=== PATIENT | male | born 1995 | race Caucasian/White ===

== ENCOUNTER 2020-08-12 08:47 | Outpatient (REF) | payer OTHER, SELFPAY ==
--- NOTE | ~2020-08-12 | US_ITS ---
EXAMINATION: US ABDOMEN COMPLETE CLINICAL INFORMATION: R10.11 - Right upper quadrant pain. COMPARISON: Ultrasound renal with Doppler 05/10/2016 TECHNIQUE: Real-time imaging of the abdominal viscera. FINDINGS: PANCREAS: The pancreas is normal in size and contour and echogenicity. There is no pancreatic ductal distention or retroperitoneal effusion. ABDOMINAL AORTA: The proximal, mid, and distal segments are normal in caliber. INFERIOR VENA CAVA: Visualized portions are normal. LIVER: Normal. The liver is normal in size. The liver contour is normal. Parenchymal echogenicity is normal. No focal hepatic lesion. There is no intrahepatic biliary duct dilatation seen. GALLBLADDER: Normal. The gallbladder is physiologically distended without evidence of stones, sludge, polyps, wall thickening or pericholecystic fluid. COMMON BILE DUCT: Normal in caliber measuring 0.4 cm in diameter. RIGHT KIDNEY: Normal. No hydronephrosis. No renal calculi or focal parenchymal lesions. The kidney measures 10.5 cm in maximum dimension. LEFT KIDNEY: Normal. No hydronephrosis. No renal calculi or focal parenchymal lesions. The kidney measures 11.3 cm in maximum dimension. SPLEEN: Normal. The spleen measures 10.7 cm in maximum dimension. FREE FLUID: None. US/US abdomen complete IMPRESSION: Normal study.
== END 2020-08-12 08:48 | disposition home or self-care (01) ==
LOC: HO.US 08:47
PROVIDERS: PCP Physician Assistant; Visit Provider Physician Assistant
DX: R10.11 Right upper quadrant pain (principal)
CPT/HCPCS: 76700

== ENCOUNTER 2020-10-29 18:02 | Emergency (ER) | payer OTHER, SELFPAY ==
--- NOTE | ~2020-10-29 | XR_ITS ---
EXAMINATION: XR HAND, LEFT CLINICAL INFORMATION: Thumb pain status post injury COMPARISON: None TECHNIQUE: PA, lateral, and oblique views of the left hand. FINDINGS: The bones and soft tissues are normal aside from some soft tissue swelling at the level of the film. No fracture. Alignment is anatomic. Joint spaces are maintained. No erosions or soft tissue calcifications. XR/XR hand LT min 3V IMPRESSION: Soft tissue swelling without fracture
[2020-10-29 18:49] VITALS: BP 134/80; PULSE 99; RESP 16; TEMP 36.9; O2SAT 98; BMI 34.9
--- NOTE | 2020-10-29 18:59 | ED.EXTPRO ---
HPI - Extremity Problem General Chief complaint: Extremity Injury, Upper Stated complaint: THUMB INJURY Time Seen by Provider: 10/29/20 18:59 Source: patient Mode of arrival: ambulatory Limitations: no limitations History of Present Illness HPI Narrative: Patient jammed left thumb playing volley ball. Patient is right handed. Complaint: extremity pain Onset (ago): hour(s) Pain Consistency: constant Location: left Quality: aching Associated symptoms: other (swelling and ecchymosis) Related Data Previous Rx's Medication Instructions Recorded inafsqdc-gkqalwhsk-qsdypoybl 3.5 4 drp OTIC (EAR) LEFT Q8H 5 Days 07/28/20 mg/mL-10,000 unit/mL-1 % ear #10 ml solution Allergies Allergy/AdvReac Type Severity Reaction Status Date / Time amoxicillin [AMOXICILLIN] Allergy Unknown HIVES Verified 07/28/20 12:07 plum [PLUMS] Allergy Unknown HIVES Verified 07/28/20 12:07 APPLE JUICE Allergy Unknown HIVES Uncoded 03/05/20 16:59 SEAFOOD Allergy Unknown DIFFICULTY Uncoded 03/05/20 16:59 BREATHING Review of Systems Constitutional: Constitutional: Reports no additional constitutional complaints Eyes: Eyes: Reports no additional eye complaints ENT: Denies dizziness Cardiovascular: Cardiovascular: Reports no additional cardiovascular complaints Respiratory: Respiratory: Reports as per HPI Gastrointestinal: Gastrointestinal: Reports no additional gastrointestinal complaints Musculoskeletal: Musculoskeletal: Reports no additional musculoskeletal complaints Integumentary/Breasts: Skin/Breast: Denies rash Neurologic: Reports system reviewed and no additional complaints, except as documented, Denies dizziness and Denies Sensory deficit (Neuro) Psychiatric: Psychiatric: Denies anxiety [facility] Social History Social History Alcohol intake: never Smoking Status: Never smoker Advance Directives: No Advance Directives Information Provided: No Physical Exam Vital Signs: Vital Signs: Last Vital Signs Temp 98.5 F 10/29/20 18:49 Pulse 99 10/29/20 18:49 Resp 16 10/29/20 18:49 BP 134/80 10/29/20 18:49 Pulse Ox 98 10/29/20 18:49 Body Mass Index 34.9 Const: General: healthy appearing Nutritional Appearance: average body habitus Orientation/consciousness: oriented to person and patient oriented x3 Limitations: no limitations HENMT: Head: Yes normal to inspection Ears: external ears normal General nose exam: Normal external nose present Mouth: Normal oral and palatal mucosa present and oropharynx normal Throat: Yes posterior oropharynx normal Eyes: General: appearance normal, both eyes and all related structures Neck: Other: supple Neck: Yes normal visual inspection Chest: Chest palpation & inspection: normal inspection of the chest Resp: Auscultation: clear to auscultation bilaterally Cardio: Jugular venous distension: no JVD Rate: regular rate Rhythm: regular rhythm Heart sounds: S1 normal heart sound present and S2 normal heart sound present GI: Inspection: Yes normal to inspection Palpation (GI): Soft to palpation, nontender and No hepatosplenomegaly present Auscultation: normal bowel sounds : General: Yes no CVA tenderness Back/Spine/Pelvis: Back: no CVA tenderness Skin: General skin exam: no rashes or lesions noted Neuro: General: oriented to person and patient oriented x3 Cranial nerves: Yes CN's II-XII intact bilaterally Motor exam (neuro): 5/5 motor strength present throughout Sensory Exam: No Sensory deficit (Neuro) Extrem: Other: left thumb with swelling to proximal joint Psych: Appearance: grossly normal MDM - Extremity (Nontraumatic) MDM Narrative Medical decision making narrative: patient with thumb sprain will place in splint and dc home Imaging Data thumb left: My impression: no fracture or dislocation Discharge Plan Discharge Clinical Impression: Finger sprain Qualifiers: Encounter type: initial encounter Finger: thumb Sprain of finger site: interphalangeal joint Laterality: left Qualified Code(s): S63.622A - Sprain of interphalangeal joint of left thumb, initial encounter Patient Disposition: Home, Self-Care Instructions: Finger Sprain (ED) Additional Instructions: ice for 20 minutes off and on. Tylenol or motrin for pain Prescriptions: No Action zhikkxfd-qdyxrndmo-AN 3.5-10,000-1 mg/mL-unit/mL-% solution 4 drp otic (ear) left Q8H 5 Days Qty: 10 RF: 0 Referrals: Pranay Back PA-C [Primary Care Provider] - 10 days
== END 2020-10-29 19:36 | disposition home or self-care (01) ==
PROVIDERS: Emergency Provider Emergency Medicine; PCP Physician Assistant
DX: S63.622A Sprain of interphalangeal joint of left thumb, initial encounter (principal); W21.06XA Struck by volleyball, initial encounter; Y93.68 Activity, volleyball (beach) (court); Y92.318 Other athletic court as the place of occurrence of the external cause; Y99.8 Other external cause status
CPT/HCPCS: 29130; 73130; 99283; 99284

== ENCOUNTER 2022-08-22 09:13 | Emergency (ER) | payer SELFPAY ==
[2022-08-22 09:32] VITALS: BP 139/59; PULSE 101; RESP 20; TEMP 37.1; O2SAT 97; BMI 37.8
--- NOTE | 2022-08-22 14:28 | ED.GENADULT ---
HPI - General Adult General Chief complaint: Eye Problems Stated complaint: Eagle palsy Time Seen by Provider: 08/22/22 13:59 Source: patient Mode of arrival: ambulatory Limitations: no limitations History of Present Illness HPI narrative: 27-year-old male presents to ED for symptoms similar to first-time presentation Crow's palsy 3 years ago. Patient states starting last night he started having twitching of his left eye with some tingling left side of face and left eye photophobia with slight headache. patient states presently no headache. Patient states when he had Crow's palsy 3 years ago he had similar initial symptoms and then 2 days later he had facial droop. Presently patient denies any facial droop, slurred speech, trouble drinking/dringkin, loss of vision, or paralysis of extremities. Patient states he tested negative for Lyme and herpes on 1st presentation of Crow's palsy 3 years ago, but at that time he was given steroid with antiviral and antibiotic before results came back. Patient denies any recent head trauma, toothache, or ear pain. Patient denies any eye pain. Patieint presently denies any headache. Patient denies any visual changes Related Data Previous Rx's Medication Instructions Recorded vbarrgyf-vlbjhglrd-jscjvpclv 3.5 4 drp otic (ear) left Q8H 5 days 07/28/20 mg/mL-10,000 unit/mL-1 % ear #10 mL solution naproxen 500 mg tablet 500 mg PO BID PRN pain 7 days #14 08/22/22 tabs prednisone 20 mg tablet 60 mg PO DAILY 7 days #21 tabs 08/22/22 Allergies Allergy/AdvReac Type Severity Reaction Status Date / Time amoxicillin [AMOXICILLIN] Allergy Unknown HIVES Verified 12/24/20 14:45 plum [PLUMS] Allergy Unknown HIVES Verified 12/24/20 14:45 APPLE JUICE Allergy Unknown HIVES Uncoded 03/05/20 16:59 SEAFOOD Allergy Unknown DIFFICULTY Uncoded 03/05/20 16:59 BREATHING Review of Systems Review of Systems: Left eye twitching, left photophobia. resolved headache Yes all other systems are reviewed and are negative PENDING SALE TO [facility] Family History Family History (Updated 12/24/20 @ 14:49 by Pranay Back PA-C) Mother Cancer, uterine Other Alzheimer disease Mental problem Social History Social History Housing: House Alcohol intake: never Patient Tobacco Use Status: Never used Tobacco e-Cigarette/Vaping Use: Never Used Second Hand Smoke Exposure: Yes Substance Use Type: Marijuana Advance Directives: Yes Advance Directives Information Provided: No Advance Directives on File: No service: No Current occupational status: employed Current occupation: works for [employer] Physical Exam ED Vital Signs: Vital Signs - 24 hr 08/22/22 09:32 Temperature 98.8 F Pulse Rate 101 H Respiratory Rate 20 Blood Pressure 139/59 L Pulse Oximetry 97 Oxygen Delivery Method Room Air BMI result Body Mass Index 37.8 Const General: cooperative, healthy appearing, comfortable, no acute distress, well developed, alert, awake and Physically active HENAR Other: Face has perfect symmetry. Negative for any facial droop. Negative for tearing or dorrping of eye. Patient blinks both eyes normal. Negative for twithcing of eyes. Patient has complete range of motion of tongue. Patient's swallowing drink without any trouble. Nose negative for any lesions. ear exam negative for lesions. Head: Yes normal to inspection, Yes No palpable skull fracture present, Yes normocephalic, Yes atraumatic and No abrasion Ears: hearing grossly normal bilaterally, external ears normal, TM's normal bilaterally, EAC's normal, mastoids normal and no periauricular adenopathy Eyes Other: Bilateral eyes: Negative for redness of scleral conjunctiva. Negative for any eye discharge. Negative for eyelid swelling/redness/crusting. Negative for any corneal abrasion/corneal ulcers. Tonometry pressure normal in both eyes. Negative for any nystagmus. Presently negative for any photophobia. Negative for any left eye twitching. Visual acuity 20/25 in both eyes. General: appearance normal, both eyes and all related structures Neck Neck: Yes normal visual inspection, Yes full ROM, Yes no lymphadenopathy, Yes no meningeal signs, Yes trachea midline, Yes supple, No anterior neck swelling and No tender Chest Chest palpation & inspection: normal inspection of the chest and normal palpation of entire chest wall Resp Effort & Inspection: normal respiratory effort and able to speak in complete sentences Auscultation: clear to auscultation bilaterally Cardio Jugular venous distension: no JVD Heart sounds: S1 normal heart sound present and S2 normal heart sound present GI Inspection: Yes normal to inspection and No abdominal wall ecchymosis Palpation (GI): Soft to palpation, not firm, nontender, no guarding and not rigid General: No CVA tenderness and Yes no CVA tenderness Back/Spine/Pelvis Back: no CVA tenderness, No CVA tenderness and No back tenderness Skin General skin exam: no rashes or lesions noted and elasticity normal Neuro Other: NIH score 0. Negative facial droop. Negative slurred speech. Negative pronator drinks. Txdjfb-on-focj and rapid hand movement intact. Negative Romberg. All extremities equal strength. General: no meningeal signs Extrem General: Yes normal to inspection and Yes full ROM Psych Appearance: grossly normal, well kempt and not disheveled Course Course Course Narrative: Patient presents to ED for early onset of Crow's palsy. Reevaluation(s) Reevaluation #1: Specially negative for any neuro deficits. Negative for any facial droop. Once again patient states when she had Crow's palsy the 1st time she had the similar symptoms and then facial droop occurred. Differential could be migraine although presently patient has no photophobia, headache, or twitching of the eye or tingling of left side of face. Will discharge with steroids and naproxen. According to UpToDate only new onset Crow's palsy require antiviral Crow's palsy. No need for imaging ( head CT/Facial CT scan) Time: 14:37 Medical Decision Making Medical Decision Making MDM Narrative: [age] year old male presents to the ED for early onset symptoms of Crow-palsy according to patinet. Patient presently has no facial droop, complete movement of both eyes, negative for any drooling, and has no other neuro deficits. Speech is clear. Patient eating and drinking water. Differential Diagnosis Differential Diagnoses: The differential diagnosis associated with the presentation includes (Migraine exacerbation, early Crow's palsy) Prescription Management I considered prescription management with: Pain Medication (naproxen) and Other (prednisone) Discharge Plan Discharge Clinical Impression: H/O Crow's palsy, Migraine Patient Disposition: Home, Self-Care Instructions: Migraine Headache (ED), Crow Palsy (ED) Additional Instructions: Presently you do not have facial droop and have no other neuro deficit. Symptoms indicate early Crow palsy versus mild migraine exacerbation. You will be discharged with steroids and naproxen. Return to the ED immediately any facial droop, loss of vision, paralysis of extremities, drooling, inability to swallow, tearing of the eye, or any other concerning symptoms. Please follow-up with primary care provider and neurologist. Prescriptions: New naproxen 500 mg tablet 500 mg PO BID PRN (Reason: pain) 7 Days Qty: 14 0RF prednisone 20 mg tablet 60 mg PO DAILY 7 Days Qty: 21 0RF No Action jqjfvuwo-mvylxcioo-WN 3.5-10,000-1 mg/mL-unit/mL-% solution 4 drp otic (ear) left Q8H 5 Days Qty: 10 0RF Stand Alone Forms: Work/School Release Interventions: ED Discharge Assessment Last Done: 08/22/22 14:55 Discharge Date/Time: 08/22/22 14:58 Print Language: Serbian
== END 2022-08-22 14:58 | disposition home or self-care (01) ==
PROVIDERS: Emergency Provider Emergency Medicine; PCP Physician Assistant
DX: G43.909 Migraine, unspecified, not intractable, without status migrainosus (principal)
CPT/HCPCS: 99282; 99283

== ENCOUNTER 2023-09-20 05:50 | Emergency (ER) | payer OTHER, SELFPAY ==
[2023-09-20 06:09] VITALS: BP 144/65; PULSE 97; RESP 16; TEMP 37.1; O2SAT 97; BMI 36.6
[2023-09-20 07:00] LABS: Influenza A PCR NEGATIVE (Negative); Influenza B PCR NEGATIVE (Negative); Resp Syncy Virus RNA Qual PCR NEGATIVE (Negative); SARS COV2 PCR INHOUSE NEGATIVE (Negative)
--- NOTE | 2023-09-20 07:58 | ED_ITS ---
HPI - General Adult General Chief complaint: General Medical Stated complaint: possible stomach bug Time Seen by Provider: 09/20/23 07:58 Source: patient Mode of arrival: ambulatory Limitations: no limitations History of Present Illness HPI narrative: Patient is a 28 year old male with no reported medical history presenting to the emergency department today with nausea, vomiting, sore throat, cough, and congestion. Patient states that he feels generally unwell with nausea, vomiting, sore throat, cough, and congestion. Patient states that he has been around other sick individuals. Patient denies any dizziness, lightheadedness, abdominal pain, fever, chills, blurry vision, double vision, loss of vision, chest pain, difficulty breathing, shortness of breath, back pain, night sweats, pain with urination, increased urinary frequency, increased urinary urgency, blood in his urine or stool, syncope or a near syncopal episode, recent trauma or falls, bowel incontinence, bladder incontinence, bowel retention, bladder retention, or any other complaints at this time. Onset (ago): day(s) Severity: mild Severity scale (1-10): 3 Relieving factors: none Exacerbating factors: none Associated symptoms: cough and nausea/vomiting Treatments prior to arrival: none Related Data Previous Rx's Medication Instructions Recorded hbntlkkq-dsiacnsxa-keuzojkio 3.5 4 drp otic (ear) left Q8H 5 days 07/28/20 mg/mL-10,000 unit/mL-1 % ear #10 mL solution naproxen 500 mg tablet 500 mg PO BID PRN pain 7 days #14 08/22/22 tabs prednisone 20 mg tablet 60 mg (3 x 20 mg) PO DAILY 7 days 08/22/22 #21 tabs ondansetron 4 mg disintegrating 4 mg PO Q8H 3 days #9 tabs 09/20/23 tablet Allergies Allergy/AdvReac Type Severity Reaction Status Date / Time amoxicillin [AMOXICILLIN] Allergy Unknown HIVES Verified 09/20/23 06:12 plum [PLUMS] Allergy Unknown HIVES Verified 09/20/23 06:12 APPLE JUICE Allergy Unknown HIVES Uncoded 09/20/23 06:12 SEAFOOD Allergy Unknown DIFFICULTY Uncoded 09/20/23 06:12 BREATHING Review of Systems Constitutional: Constitutional: Reports no additional constitutional complaints, Denies chills, Denies fever(s) and Denies night sweats Eyes: Eyes: Reports no additional eye complaints, Denies blurry vision, Denies change in vision, Denies diplopia, Denies eye discharge, Denies loss of vision and Denies eye pain ENT: Denies dizziness, Reports nasal congestion and Reports sore throat Cardiovascular: Cardiovascular: Reports no additional cardiovascular complaints, Denies chest pain, Denies lightheadedness, Denies Loss of Consciousness and Denies dyspnea Respiratory: Respiratory: Reports no additional respiratory complaints, Reports cough and Denies dyspnea Gastrointestinal: Gastrointestinal: Reports no additional gastrointestinal complaints, Denies abdominal pain, Denies melena, Denies hematochezia, Denies change in bowel habits, Denies change in stool character, Reports nausea and Reports vomiting Genitourinary: Genitourinary: Reports no additional male genitourinary complaints, Denies hematuria, Denies oliguria, Denies difficulty urinating, Denies dysuria, Denies urinary frequency, Denies urinary hesitancy, Denies urinary incontinence and Denies urinary urgency Musculoskeletal: Musculoskeletal: Reports no additional musculoskeletal com plaints, Denies numbness and Denies tingling Neurologic: Denies dizziness, Denies loss of vision, Denies numbness and Denies tingling Psychiatric: Psychiatric: Reports no additional psychiatric complaints Endocrine: Endocrine: Reports no additional endocrine complaints Hematologic/Lymphatic: Hematologic/Lymphatic: Reports no additional hematologic/lymphatic complaints Allergic/Immunologic: Allergic/Immunologic: Reports no additional allergic/immunologic complaints [facility] Past Medical History Attestation statement: The following information was validated with the patient. Source: old records reviewed and nursing notes reviewed Family History Family History Mother Cancer, uterine Other Alzheimer disease Mental problem Social History Social History Housing: House Alcohol intake: never Patient Tobacco Use Status: Never used Tobacco e-Cigarette/Vaping Use: Never Used Second Hand Smoke Exposure: Yes Substance Use Type: Marijuana Advance Directives: No Advance Directives Information Provided: No service: No Current occupational status: employed Current occupation: works for [employer] Physical Exam ED Vital Signs: Vital Signs - 24 hr 09/20/23 06:09 09/20/23 08:37 09/20/23 08:37 Temperature 98.7 F 98.7 F 98.7 F Pulse Rate 97 97 97 Respiratory Rate 16 20 16 Blood Pressure 144/65 H 144/65 H 144/65 H Pulse Oximetry 97 97 97 Oxygen Delivery Method Room Air Room Air Room Air BMI result Body Mass Index 36.6 Const General: cooperative, no acute distress, alert and awake Nutritional Appearance: well nourished Orientation/consciousness: patient oriented x3 Limitations: no limitations HENMT Head: Yes normal to inspection and Yes atraumatic Ears: hearing grossly normal bilaterally and external ears normal General nose exam: Normal external nose present, no nasal discharge noted and no epistaxis Face and sinus: Yes normal facial exam, No abrasion and No laceration Mouth: Normal oral and palatal mucosa present, no drooling and no muffled voice Eyes General: appearance normal, both eyes and all related structures Periorbital: periorbital findings normal Eyelids: Yes eyelids normal Conjunctivae: conjunctivae normal Pupils: Equal, round and reactive pupils present EOM: EOMs intact bilaterally Neck Neck: Yes normal visual inspection, Yes full ROM and Yes no lymphadenopathy Chest Chest palpation & inspection: normal inspection of the chest Resp Effort & Inspection: normal respiratory effort and able to speak in complete sentences GI Inspection: Yes normal to inspection Neuro General: patient oriented x3 and moves all extremities Cranial nerves: Yes Equal, round and reactive pupils present Cognition (Neuro): normal cognition Motor exam (neuro): 5/5 motor strength present throughout Sensory Exam: Normal double simultaneous stimulation for sensation Coordination: huholj-aq-kcpz test normal Extrem General: Yes normal to inspection, Yes full ROM and Yes capillary refill normal Psych Appearance: grossly normal Mental Status: mental status grossly normal Affect: normal affect Attitude: cooperative Thought process: Normal thought process present Thought content: Normal thought content present Insight: Good insight present (Psych) Medical Decision Making Medical Decision Making MDM Narrative: Patient is a 28 year old male with no reported medical history presenting to the emergency department today with nausea, vomiting, sore throat, cough, and congestion. Patient's physical exam was unremarkable. Patient's COVID-19, influenza, and RSV tests were negative. I explained my physical exam findings as well as all test results to the patient. I answered all questions asked by the patient. I stressed the importance of the patient taking his medication as prescribed. I stressed the importance of the patient following up with his [facility] care provider. I stressed the importance of the patient returning to the emergency department immediately if his symptoms were to worsen or if he were to develop any dizziness, shortness of breath, difficulty breathing, chest pain, blurry vision, loss of vision, nausea, vomiting, abdominal pain, fever, chills, back pain, or any other complaints. Patient verbalized agreement and understanding with this treatment plan and discharge. Differential Diagnosis Differential Diagnoses: The differential diagnosis associated with the prese ntation includes Cough Nausea Vomiting Sore throat Viral illness Gastroenteritis URI COVID-19 Influenza RSV Admission/Observation Consideration of admission/observation: Escalation of care including admission/observation considered Patient would have been admitted to the hospital had his work up had any findings where hospital admission was appropriate and his clinical presentation warranted hospital admission. Lab Data [facility] Lab Attestation statement: I reviewed the patient's lab results. My interpretation of these results are in the [facility] Rationale portion of this note. Labs: Lab Results 09/20/23 Range/Units 06:18 Influenza Type A (PCR) NEGATIVE (Negative) Influenza Type B (PCR) NEGATIVE (Negative) RSV RNA Qual (PCR) NEGATIVE (Negative) SARS-CoV-2 RNA (RT-PCR) NEGATIVE (Negative) Prescription Management I considered prescription management with: Other (patient prescribed an anti- emetic) Discharge Plan Discharge Clinical Impression: Gastroenteritis Patient Disposition: Home, Self-Care Instructions: Gastroenteritis (ED) Additional Instructions: Follow up with your primary care provider. Return to the emergency department immediately if your symptoms worsen or if you develop any dizziness, shortness of breath, difficulty breathing, chest pain, blurry vision, loss of vision, nausea, vomiting, abdominal pain, fever, chills, back pain, or any other complaints. Prescriptions: New ondansetron 4 mg tablet,disintegrating 4 mg PO Q8H 3 Days Qty: 9 0RF No Action naproxen 500 mg tablet 500 mg PO BID PRN (Reason: pain) 7 Days Qty: 14 0RF prednisone 20 mg tablet 60 mg PO DAILY 7 Days Qty: 21 0RF uvjnvwar-helibhasl-RU 3.5-10,000-1 mg/mL-unit/mL-% solution 4 drp otic (ear) left Q8H 5 Days Qty: 10 0RF [place] [facility]] (Call to establish and follow up with a primary care provider. If you already have a primary care provider, please follow up with them.) [facility] [place] [facility] [Provider Group] (Call to establish and follow up with a primary care provider. If you already have a primary care provider, please follow up with them.) [facility] [place] [facility] [Provider Group] (Call to establish and follow up with a primary care provider. If you already have a primary care provider, please follow up with them.) Stand Alone Forms: Work/School Release Interventions: ED Discharge Assessment Last Done: 09/20/23 08:37 Discharge Date/Time: 09/20/23 08:38 Print Language: Georgian
[2023-09-20 08:37] VITALS: BP 144/65; PULSE 97; RESP 16; RESP 20; TEMP 37.1; O2SAT 97
== END 2023-09-20 08:38 | disposition home or self-care (01) ==
PROVIDERS: Emergency Provider Emergency Medicine; PCP Physician Assistant
DX: K52.9 Noninfective gastroenteritis and colitis, unspecified (principal)
CPT/HCPCS: 0241U; 99282; 99283

== ENCOUNTER 2024-06-02 14:21 | Emergency (ER) | payer OTHER, SELFPAY ==
--- NOTE | 2024-06-02 14:25 | ED.HEATRA ---
HPI - Head Injury General Chief complaint: Head Injury Stated complaint: Hit head, blurry vision nausea Time Seen by Provider: 06/02/24 15:05 Source: patient Mode of arrival: ambulatory Limitations: no limitations History of Present Illness ED Provider: Ana Olvera APRN HPI Narrative: 29-year-old male with a history of asthma, PFO, presents to the ER after a head strike which occurred prior to arrival. Patient reports about 1.5 hrs ago he was bending down to put groceries away and forgot he had left the freezer door open. When he stood up he hit the back of his head on the freezer door. No loss of consciousness. Did have a headache and blurry vision which has now resolved. No nausea, vomiting, photophobia, neck pain. No previous history of concussions or head injuries. No AC therapy use. 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 No new changes. Related Data Previous Rx's ?Medication ?Instructions ?Recorded wpyzrpjb-musxkekuh-scannclhr 3.5 4 drp otic (ear) left Q8H 5 days 07/28/20 mg/mL-10,000 unit/mL-1 % ear #10 mL solution naproxen 500 mg tablet 500 mg PO BID PRN pain 7 days #14 08/22/22 tabs prednisone 20 mg tablet 60 mg (3 x 20 mg) PO DAILY 7 days 08/22/22 #21 tabs ondansetron 4 mg disintegrating 4 mg PO Q8H 3 days #9 tabs 09/20/23 tablet Allergies Allergy/AdvReac Type Severity Reaction Status Date / Time amoxicillin [AMOXICILLIN] Allergy Unknown HIVES Verified 06/02/24 14:29 plum [PLUMS] Allergy Unknown HIVES Verified 06/02/24 14:29 APPLE JUICE Allergy Unknown HIVES Uncoded 09/20/23 06:12 SEAFOOD Allergy Unknown DIFFICULTY Uncoded 09/20/23 06:12 BREATHING Review of Systems Review of Systems: Yes all other systems are reviewed and are negative Constitutional: Constitutional: Reports no additional constitutional complaints, Denies body ache(s), Denies chills, Denies fever(s), Reports headache(s) and Denies weakness Eyes: Eyes: Reports no additional eye complaints, Reports blurry vision and Denies change in vision ENT: Reports system reviewed and no additional complaints, except as documented, Denies dizziness, Reports headache(s), Denies nasal congestion, Denies nasal discharge and Denies neck pain Cardiovascular: Cardiovascular: Reports no additional cardiovascular complaints, Denies chest pain, Denies leg edema and Denies dyspnea Respiratory: Respiratory: Reports no additional respiratory complaints, Denies cough and Denies dyspnea Gastrointestinal: Gastrointestinal: Reports no additional gastrointestinal complaints, Denies abdominal pain, Denies diarrhea, Denies nausea and Denies vomiting Genitourinary: Genitourinary: Denies urinary incontinence Musculoskeletal: Musculoskeletal: Reports no additional musculoskeletal complaints, Denies back pain, Denies arthralgias, Denies joint swelling, Denies neck pain, Denies numbness and Denies tingling Integumentary/Breasts: Skin/Breast: Reports system reviewed and no additional complaints, except as docu and Denies rash Neurologic: Reports system reviewed and no additional complaints, except as documented, Denies Abnormal speech present, Denies dizziness, Reports headache(s), Denies numbness, Denies tingling and Denies weakness PMF Past Medical History Attestation statement: The following information was validated with the patient. Source: old records reviewed and nursing notes reviewed Family History Family History Mother Cancer, uterine Other Alzheimer disease Mental problem Social History Social History Housing: House Alcohol intake: never Patient Tobacco Use Status: Never used Tobacco e-Cigarette/Vaping Use: Never Used Second Hand Smoke Exposure: Yes Substance Use Type: Marijuana Advance Directives: No Advance Directives Information Provided: No Do you have a plan to hurt others: No Plan service: No Current occupational status: employed Current occupation: works for [employer] Physical Exam Vital Signs: Vital Signs: Last Vital Signs Temp 98.3 F 06/02/24 15:47 Pulse 83 06/02/24 15:47 Resp 18 06/02/24 15:47 BP 151/85 H 06/02/24 15:47 Pulse Ox 97 06/02/24 15:47 O2 Del Method Room Air 06/02/24 15:47 BMI result Body Mass Index 39.9 Const: General: cooperative, healthy appearing, comfortable and no acute distress Orientation/consciousness: patient oriented x3 Limitations: no limitations HEENT: Other: NO hemotmpanum Head: Yes normal to inspection, No Martin's sign and No raccoon eyes Ears: hearing grossly normal bilaterally and TM's normal bilaterally General nose exam: Normal external nose present Face and sinus: Yes normal facial exam Mouth: Normal oral and palatal mucosa present Throat: Yes posterior oropharynx normal, Yes tonsils normal and Yes uvula midline Eyes: General: appearance normal, both eyes and all related structures Pupils: Equal, round and reactive pupils present Neck: Other: no cervical midline tenderness/step offs or deformities Neck: Yes normal visual inspection, Yes full ROM, Yes no lymphadenopathy and Yes no meningeal signs Chest: Chest palpation & inspection: normal inspection of the chest Resp: Effort & Inspection: normal respiratory effort Auscultation: clear to auscultation bilaterally Cardio: Rate: regular rate Rhythm: regular rhythm Peripheral pulses: Peripheral pulses 2+ throughout GI: Inspection: Yes normal to inspection Palpation (GI): Soft to palpation and nontender Auscultation: normal bowel sounds Back/Spine/Pelvis: Thoracic/Lumbar Spine: thoracic and lumbar spine normal to inspection Skin: General skin exam: no rashes or lesions noted Neuro: Other: blind right eye at baseline Documentation below for left eye only General: patient oriented x3, moves all extremities, no meningeal signs, no focal motor deficits and normal sensation to monofilament Cranial nerves: Yes CN's II-XII intact bilaterally, Yes Equal, round and reactive pupils present, Yes Bilaterally intact EOM present, Yes Nystagmus not present, Yes Normal facial strength present and Yes Midline tongue present Cognition (Neuro): normal cognition Speech: No Abnormal speech present Gait exam (Neuro): Normal gait present Motor exam (neuro): 5/5 motor strength present throughout Sensory Exam: Normal double simultaneous stimulation for sensation Extrem: General: Yes normal to inspection Course Course Course Narrative: patient is a 29-year-old who presents emergency department for evaluation after head injury. He reports that he was putting away groceries forgot that the freezer door was open when he stood up he struck his head onto the freezer door. 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 Denies LOC. He is reporting persistent nausea as well as a headache, did not take any OTC analgesics. Has no focal neurological deficits. Ambulatory with a steady gait. No scalp lacerations. No use of anticoagulants or known coagulation disorders. Plan: Zofran, Tylenol, visual acuity, [place] head CT rule without indication for radiographic imaging at this time Medications Administered Discontinued Medications Generic Name Dose Route Start Last Admin Trade Name Sergey PRN Reason Stop Dose Admin Acetaminophen 975 mg 06/02/24 14:31 06/02/24 15:03 Acetaminophen 325 Mg Tablet PO 06/02/24 14:32 975 mg ONCE ONE Administration Ondansetron HCl 4 mg 06/02/24 14:31 06/02/24 15:02 Ondansetron Odt 4 Mg Tab.Rapdis TRANSLINGU 06/02/24 14:32 4 mg ONCE ONE Administration Medical Decision Making Medical Decision Making MDM Narrative: 29-year-old male with a history of asthma, PFO, presents to the ER after a head strike which occurred prior to arrival. Patient reports about 1.5 hrs ago he was bending down to put groceries away and forgot he had left the freezer door open. When he stood up he hit the back of his head on the freezer door. No loss of consciousness. Did have a headache and blurry vision which has now resolved. No nausea, vomiting, photophobia, neck pain. No previous history of concussions or head injuries. No AC therapy use. 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 No new changes. Normal neuro exam with no focal deficits. Reviewed CT [place] head ct rule. Imaging not warranted. Reviewed this with the patient and shared decision making for no head CT. Reviewed head injury care at home. Reviewed worrisome signs/symptoms with patient and when to seek additional care. Comfortable with plan for discharge home. Differential Diagnosis Differential Diagnoses: The differential diagnosis associated with the presentation includes Concussion Low suspicion for skull fracture, ICH Admission/Observation Consideration of admission/observation: Escalation of care including admission/observation considered Low suspicion for skull fracture, ICH requiring imaging and or transfer to tertiary care center for neurosurgery evaluation Independent Historian Clinical information obtained from an independent historian. History obtained from or confirmed by: Friend Tests considered The following testing was considered but not selected: Low suspicion for skull fracture, ICH requiring imaging Discharge Plan Discharge Clinical Impression: Concussion without loss of consciousness Patient Disposition: Home, Self-Care Instructions: Concussion (ED) Additional Instructions: Get plenty of brain rest Limit screen time Take Motrin or Tylenol for any pain as needed Return for severe headache, vomiting, behavior changes Prescriptions: No Action naproxen 500 mg tablet 500 mg PO BID PRN (Reason: pain) 7 Days Qty: 14 0RF prednisone 20 mg tablet 60 mg PO DAILY 7 Days Qty: 21 0RF ondansetron 4 mg tablet,disintegrating 4 mg PO Q8H 3 Days Qty: 9 0RF xzmkllzk-wluaxmxlx-SH 3.5-10,000-1 mg/mL-unit/mL-% solution 4 drp otic (ear) left Q8H 5 Days Qty: 10 0RF Referrals: Pranay Back PA-C [Primary Care Provider] - 1 week Stand Alone Forms: Work/School Release Interventions: ED Discharge Assessment Last Done: 06/02/24 15:47 Discharge Date/Time: 06/02/24 15:57 Print Language: Bengali
[2024-06-02 14:26] VITALS: BP 151/85; PULSE 83; RESP 18; TEMP 36.8; O2SAT 97; BMI 39.9
[2024-06-02] MEDS: Ondansetron ODT 4 MG TAB.RAPDIS TRANSLINGU (15:02)
[2024-06-02] MEDS: Acetaminophen 325 MG TABLET 975 MG PO (15:03)
--- NOTE | 2024-06-02 15:40 | MHC.EDTECH ---
at this time this tech performed a visual acuity test on the pt, upon completing the test he stated that he could not see the visual acuity sign with his Right eye when covering the left. However he was able to perform the test w/ his left eye uncovered
[2024-06-02 15:47] VITALS: BP 151/85; PULSE 83; RESP 18; TEMP 36.8; O2SAT 97
== END 2024-06-02 15:57 | disposition home or self-care (01) ==
PROVIDERS: Emergency Provider Emergency Medicine; PCP Physician Assistant
DX: S06.0X0A Concussion without loss of consciousness, initial encounter (principal); X58.XXXA Exposure to other specified factors, initial encounter; Y93.9 Activity, unspecified; Y92.9 Unspecified place or not applicable; Y99.8 Other external cause status
CPT/HCPCS: 99283

== ENCOUNTER 2024-07-29 07:46 | Emergency (ER) | payer OTHER, SELFPAY ==
[2024-07-29 07:49] VITALS: BP 127/82; PULSE 102; RESP 20; TEMP 36.4; O2SAT 100; BMI 41.4
--- OUTSIDE RECORDS SUMMARY | 2024-07-29 09:52 | XMS_ITS | Encounter Summary ---
Author Organization [facility] Address [address] [place] [phone] Phone Care Team Providers Care Blueprint Clerk Name Role Phone Danielle Smith APPLIED RESEARCHER Primary Care Provider Maritza oliveira Encounter Details Date Type Department Care Team (Late st Contact Info) Description 10/02/2013 Documentation [facility] [place] Family Medicine [address] [place] [address] Family Medicine, Physician [facility] [place] [address] Social History Tobacco Use Types Packs/Day Years Used Date Smoking Tobacco: Never Assessed Comments Unknown Sex and Gender Information Value Date Recorded Sex Assigned at Not on file Legal Sex Female 5:20 PM EDT Gender Identity Not on file Sexual Orientation Not on file documented as of this encounter Plan of Treatment Not on file documented as of this encounter Visit Diagnoses Not on filedocumented in this encounter Care Teams Blueprint Clerk Relationship Specialty Start Date End Date Danielle Smith NP PCP - General 01/27/17 08/04/22 documented as of this encounter
--- OUTSIDE RECORDS SUMMARY | 2024-07-29 09:52 | XMS_ITS | Encounter Summary ---
Author Organization [facility] Address [address] [place] [phone] Phone Care Team Providers Care Entry Level Management Name Role Phone Danielle Smith STRATEGIC COMMUNICATIONS SPECIALIST Primary Care Provider Maritza oliveira Encounter Details Date Type Department Care Team (Late st Contact Info) Description 12/25/2014 Documentation [facility] [place] Family Medicine [address] [place] [address] Family Medicine, Physician [facility] [place] [address] Social History Tobacco Use Types Packs/Day Years [...] on filedocumented in this encounter Care Teams Entry Level Management Relationship Specialty Start Date End Date Danielle Smith NP PCP - General 01/27/17 08/04/22 documented as of this encounter
--- OUTSIDE RECORDS SUMMARY | 2024-07-29 09:52 | XMS_ITS | Encounter Summary ---
Author Organization [facility] Address [address] [place] [phone] Phone Care Team Providers Care Avionics Systems Engineer Name Role Phone Danielle Smith NP Primary Care Provider Maritza oliveira Encounter Details Date Type Department Care Team (Late st Contact Info) Description 07/11/2016 Documentation [facility] [place] Family Medicine [facility] [place] [address] Family Medicine, Physician [facility] [place] [address] Social History Tobacco Use Types Packs/Day Years Used Date Smoking Tobacco: Never Comments:Never smoker Comments Unknown Sex and Gender Information Value Date Recorded Sex Assigned at Not on file Legal Sex Female 5:20 PM EDT Gender Identity Not on file Sexual Orientation Not on file documented as of this encounter Plan of Treatment Not on file documented as of this encounter Visit Diagnoses Not on filedocumented in this encounter Care Teams Avionics Systems Engineer Relationship Specialty Start Date End Date Danielle Smith NP PCP - General 01/27/17 08/04/22 documented as of this encounter
--- OUTSIDE RECORDS SUMMARY | 2024-07-29 09:52 | XMS_ITS | Encounter Summary ---
Author Organization [facility] Address [address] [place] [address] Phone Care Team Providers Care Mill Worker Name Role Phone Danielle Smith NP Primary Care Provider Maritza oliveira Encounter Details Date Type Department Care Team (Late st Contact Info) Description 07/11/2016 Documentation [facility] [place] [facility] [facility] to [facility] [place] [address] Family Medicine, Physician Pending sale to [place] [address] Social History Tobacco Use Types Packs/Day Years [...] on filedocumented in this encounter Care Teams Mill Worker Relationship Specialty Start Date End Date Danielle Smith NP PCP - General 01/27/17 08/04/22 documented as of this encounter
--- OUTSIDE RECORDS SUMMARY | 2024-07-29 09:52 | XMS_ITS | Clinical Summary ---
Author Organization [facility] Address [address] [place] [phone] Phone Care Team Providers Care Data Warehouse Manager Name Role Phone Unavailable Primary Care Provider Unavailabl e Allergies Active Allergy Reactions Criticality Noted Date Comments Amoxicillin Rash Low Apple Juice Food 04/10/2017 plum Medications leuprolide (LUPRON DEPOT, 3-MONTH,) 22.5 MG injection Inject into the muscle. 04/21/2015 Active testosterone 50 MG/5GM (1%) gel TESTOSTERON E; 50 MG/5 GRAM (1 %); 02/15/2016; Active 02/15/2016 Active valACYclovir 1 G tablet TK 1 T PO Q 8 H X 7 DAYS 0 09/01/2017 Active predniSONE 20 MG tablet TK 3 TS PO QD FOR 5 DAYS 0 09/01/2017 Active testosterone cypionate 200 MG/ML injection 5 06/02/2017 Act amberly Active Problems Problem Noted Date Diagnosed Date Essential hypertension 12/26/2017 Overview (12/26/2017): Seen by cardiology and started on lisinopril with close follow up planned with them. 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 Immunizations Immunization Administration Dates Next Due DTaP 5 01/07/2003, 9,1997,08/25,1997 HPV, Quadrivalent 08/07/2009,04/01/2009,01/27/20 09 Hep A, ped/adol 12/09/2015,01/27/2015 Hep B, ped/adol 1997,1997,1997 Hib (PRP-T) 09/02/1998, 8,1997,07/14 IPV 01/07/2003 Influenza Split 05/16/2012,05/02/2011 Influenza, injectable, quadrivalent 04/21/2015 Influenza, injectable, quadr ivalent, preservative free 04/10/2017,02/15/2016,08/07/2013 MMR 10/22/2001,05/13/1998 Meningococcal Conj (Menactra) MCV4P 01/27/2015,0 01/26/2009 OPV 1997,1997,1997 Tdap 01/26/2009 Varicella 01/22/2008,05/26/1999 Family History Medical History Relation Name Comments Alcoholism Father's Brother Alcoholism Maternal Grandmother Anxiety disorder Maternal Grandmother Asthma Maternal Grandmother Cancer (Childhood Onset) Maternal Grandmother Depression Maternal Grandmother Hearing loss Maternal Grandmother Heart disease (Premature) Maternal Grandmother Hypertension Maternal Grandmother Obesity Maternal Grandmother Allergic rhinitis Mother Asthma Mother Breast cancer Mother Cancer (Childhood Onset) Mother Depression Mother Hypertension Mother Learning disabilities Mother Obesity Mother Substance abuse Mother Diabetes Mother's Brother Anxiety disorder Mother's Sister Depression Mother's Sister Obesity Mother's Sister Cancer (Childhood Onset) Paternal Grandfather ADD / ADHD Sister Relation Name Status Comments Father Alive Father: Alive a nd well Father's Brother Maternal Grandmother Mother Alive Mother: Fragile X Carrier Mother's Brother Mother's Sister Other 1 Alive Aunt: Alive and well Other 2 Family history of Strabismus, Family history of Obesity, Family history of Diabetes mellitus, Family history of Asthma Paternal Grandfather Sister Social History Tobacco Use Types Packs/Day Years Used Date Smoking Tobacco: Never Comments:Never smoker Comments Unknown Sex and Gender Information Value Date Recorded Sex Assigned at Not on file Legal Sex Female 5:20 PM EDT Gender Identity Not on file Sexual Orientation Not on file Last Filed Vital Signs Vital Sign Reading Time Taken Comments Blood Pressure 116/78 09/11/2017 10:54 AM EDT Pulse 81 09/11/2017 10:54 AM EDT Temperature 36.8 ??C (98.2 ??F) 09/11/2017 10:54 AM E DT Respiratory Rate - - Oxygen Saturation - - Inhaled Oxygen Concentration - - Weight 83.1 kg (183 lb 2 oz) 09/11/2017 10:54 AM EDT Height 166.4 cm (5' 5.5 ) 04/10/2017 1:53 PM EDT Body Mass Index 30.01 04/10/2017 1:53 PM EDT Plan of Treatment Health Maintenance Due Date Last Done Comments DTaP,Tdap,and Td Vaccines (7 - Td or Tdap) 01/26/2019 01/26/2009, 01/07/2003, 10/07/1998, Additional history exists Influenza Vaccines (#1) 2024 04/10/20 17, 02/15/2016, 04/21/2015, Additional history exists COVID-19 Vaccine ( season) 2024 Hepatitis B Vaccines Completed 1997, 1997, 1997 HIB Vaccines Completed 09/02/1998, 09/18, 1997, Additional history exists MMR Vaccines Completed 10/22/2001, 05/13/1998 IPV Vaccines Completed 01/07/2003, 09/18, 1997, Additional history exists Varicella Vaccines Completed 01/22/2008, 05/26/1999 HPV Vaccines Completed 08/07/2009, 03/19, 01/26/2009 Meningococcal Vaccine Completed 01/27/2015, 009 Hepatitis A Vaccines Completed 12/09/2015, 01/28/20 15 Men B Vaccine Aged Out No longer elig ible based on patient's age to complete this topic Pneumococcal Vaccine Aged Out No long er eligible based on patient's age to complete this topic Procedures * Due to [place] [employer] law, this organization might not be sharing sensitive test results. Procedure Name Priority Date/Time Associated Diagnosis Comments CHLAMYDIA AND GONORRHEA, AMPLIFIED Routine 02/16/2016 2:09 PM EDT from Last 3 Months or Most Recently Relevant to Health Maintenance Results * Due to [place] [employer] law, this organization might not be sharing sensitive test results. * Chlamydia and Gonorrhoea, Amplified (02/16/2016 2:09 PM EDT) URINE GC AMP PROBE NEGATIVE [facility] Comment: No Neisseria Gonorrhoeae RNA detected in this patient's sample (REFERENCE RANGE/NORMAL VALUE: NOT DETECTED) NOTE: This test uses manager publishing-mediated amplification method to detect rRNA from C.Trachomatis and N.Gonorrhoeae. A negative result does not preclude infection. In the case of a negative urine result, testing of an endocervical(female) or urethral(male) specimen is recommended if there is high clinical suspicion of infection. The performance characteristics of this test have not been evaluated in children. The Aptima Combo2 assay is not intended for the evaluation of suspected sexual abuse or for other medico-legal indications. The ordering provider should assess if the patient had consensual sex without risk of sexual abuse. Consult the [facility] if needed. Contact phone number . Therapeutic failure or success cannot be determined with the Aptima Combo2 assay since nucleic acid may persist following appropriate antimicrobial therapy. The Centers for Disease Control and Prevention (CDC) recommends confirmatory retesting using culture or a different nucleic acid amplification test when positive results occur, if indicated. Testing performed or reported by [facility], a Service of [facility], [address] [place] [address] CLIA ??[id number] Werner Gilbert MD, PhD, Grain Roaster URINE CHLAMYDIA AMP PROBE NEGATIVE [facility] Comment: No Chlamydia Trachomatis RNA detected in this patient's sample (REFERENCE RANGE/NORMAL VALUE: NOT DETECTED) 02/16/2016 2:09 PM EDT Narrative [facility] - 02/16/2016 2:09 PM EDT URINE CHLAMYDIA GC AMP PROBE us Danielle Smith NP LAB MICROBIOLOGY - GENERAL OR DERABLES Final Result [facility] [address] [place] [address], from Last 3 Months or Most Recently Relevant to Health Maintenance Insurance [place]IZ BRYANT [id number] [facility] [employer] NON PCC
--- OUTSIDE RECORDS SUMMARY | 2024-07-29 09:52 | XMS_ITS | Encounter Summary ---
Author Organization [facility] Address [address] [place] [address] Phone Care Team Providers Care Chip Bin Conveyor Tender Name Role Phone Danielle Smith NP Primary Care Provider Maritza oliveira Encounter Details Date Type Department Care Team (Late st Contact Info) Description 04/04/2016 Documentation [facility] [place] [address] [place] [address] Family Medicine, Physician [facility] [place] [address] Social History Tobacco Use Types Packs/Day Years [...] on filedocumented in this encounter Care Teams Chip Bin Conveyor Tender Relationship Specialty Start Date End Date Danielle Smith NP PCP - General 01/27/17 08/04/22 documented as of this encounter
--- OUTSIDE RECORDS SUMMARY | 2024-07-29 09:52 | XMS_ITS | Encounter Summary ---
Author Organization [facility] Address [address] [place] [address] Phone Care Team Providers Care Warehouse Selector Name Role Phone Danielle Smith NP Primary Care Provider Maritza oliveira Encounter Details Date Type Department Care Team (Late st Contact Info) Description 09/26/2016 Documentation [facility] [place] [facility] [place] [address] Family Medicine, Physician [facility] [place] [address] Social History Tobacco Use Types Packs/Day Years [...] on filedocumented in this encounter Care Teams Warehouse Selector Relationship Specialty Start Date End Date Danielle Smith NP PCP - General 01/27/17 08/04/22 documented as of this encounter
--- OUTSIDE RECORDS SUMMARY | 2024-07-29 09:52 | XMS_ITS | Encounter Summary ---
Author Organization [facility] Address [address] [place] [phone] Phone Care Team Providers Care Computer Analyst Supervisor Name Role Phone Danielle Smith NP Primary Care Provider Maritza oliveira Encounter Details Date Type Department Care Team (Late st Contact Info) Description 08/10/2016 Documentation [facility] [place] [facility] [place] [address] Family Medicine, Physician [facility] [place] [address] Social History Tobacco Use Types Packs/Day Years [...] on filedocumented in this encounter Care Teams Computer Analyst Supervisor Relationship Specialty Start Date End Date Danielle Smith NP PCP - General 01/27/17 08/04/22 documented as of this encounter
--- OUTSIDE RECORDS SUMMARY | 2024-07-29 09:52 | XMS_ITS | Encounter Summary ---
Author Organization [facility] Address [address] [place] [address] Phone Care Team Providers Care Supervisor Beehive Kiln Name Role Phone Danielle Smith FEATHER BALER Primary Care Provider Maritza oliveira Encounter Details Date Type Department Care Team (Late st Contact Info) Description 12/16/2013 Documentation [facility] [place] [address] [place] [address] Family Medicine, Physician [facility] [place] [address] Social History Tobacco Use Types Packs/Day Years [...] on filedocumented in this encounter Care Teams Supervisor Beehive Kiln Relationship Specialty Start Date End Date Danielle Smith NP PCP - General 01/27/17 08/04/22 documented as of this encounter
--- OUTSIDE RECORDS SUMMARY | 2024-07-29 09:52 | XMS_ITS | Encounter Summary ---
Author Organization [facility] Address [address] [place] [address] Phone Care Team Providers Care Cement Loader Name Role Phone Danielle Smith VIDEO EDITING INTERNSHIP Primary Care Provider Maritza oliveira Encounter Details Date Type Department Care Team (Late st Contact Info) Description 10/20/2015 Documentation [facility] [place] [address] [place] [address] Family Medicine, Physician [place] [address] Social History Tobacco Use Types Packs/Day Years [...] on filedocumented in this encounter Care Teams Cement Loader Relationship Specialty Start Date End Date Danielle Smith NP PCP - General 01/27/17 08/04/22 documented as of this encounter
--- OUTSIDE RECORDS SUMMARY | 2024-07-29 09:52 | XMS_ITS | Encounter Summary ---
Author Organization [facility] Address [address] [place] [address] Phone Care Team Providers Care Director Patient Accounting Name Role Phone Danielle Smith BARREL LATHE OPERATOR INSIDE Primary Care Provider Maritza oliveira Encounter Details Date Type Department Care Team (Late st Contact Info) Description 07/07/2015 Documentation [facility] [place] Family Medicine [address] [place] [address] Family Medicine, Physician [place] [address] Social History Tobacco Use Types Packs/Day Years [...] on filedocumented in this encounter Care Teams Director Patient Accounting Relationship Specialty Start Date End Date Danielle Smith NP PCP - General 01/27/17 08/04/22 documented as of this encounter
--- OUTSIDE RECORDS SUMMARY | 2024-07-29 09:52 | XMS_ITS | Encounter Summary ---
Author Organization [facility] Address [address] [place] [address] Phone Care Team Providers Care Server Engineer Name Role Phone Danielle Smith NP Primary Care Provider Maritza oliveira Encounter Details Date Type Department Care Team (Late st Contact Info) Description 07/11/2016 Documentation [facility] [place] Medicine [facility] [place] [address] Family Medicine, Physician [facility] [place] [address] Social History Tobacco Use Types Packs/Day Years [...] on filedocumented in this encounter Care Teams Server Engineer Relationship Specialty Start Date End Date Dainelle Smith NP PCP - General 01/27/17 08/04/22 documented as of this encounter
--- OUTSIDE RECORDS SUMMARY | 2024-07-29 09:52 | XMS_ITS | Encounter Summary ---
Author Organization [facility] Address [address] [place] [address] Phone Care Team Providers Care Vendor Analyst Name Role Phone Danielle Smith NP Primary Care Provider Maritza oliveira Encounter Details Date Type Department Care Team (Late st Contact Info) Description 02/02/2017 Conversion Encounter [facility] [address] [address] Social History Tobacco Use Types Packs/Day Years [...] on filedocumented in this encounter Care Teams Vendor Analyst Relationship Specialty Start Date End Date aDnielle Smith NP PCP - General 01/27/17 08/04/22 documented as of this encounter
--- OUTSIDE RECORDS SUMMARY | 2024-07-29 09:52 | XMS_ITS | Encounter Summary ---
Author Organization [facility] Address [address] [place] [address] Phone Care Team Providers Care Director Of Preclinical Research Name Role Phone Danielle Smith NP Primary Care Provider Maritza oliveira Encounter Details Date Type Department Care Team (Late st Contact Info) Description 03/23/2016 [place]ation [facility] [place] [address] [place] [address] Family Medicine, Physician [facility] [place] [address] Social History Tobacco Use Types Packs/Day Years [...] filedocumented in this encounter Care Teams Director Of Preclinical Research Relationship Specialty Start Date End Date Danielle Smith NP PCP - General 01/27/17 08/04/22 documented as of this encounter
--- OUTSIDE RECORDS SUMMARY | 2024-07-29 09:52 | XMS_ITS | Encounter Summary ---
Author Organization [facility] Address [address] [place] [address] Phone Care Team Providers Care Slide Machine Tender Name Role Phone Danielle Smith PLATING TANK OPERATOR APPRENTICE Primary Care Provider Maritza oliveira Encounter Details Date Type Department Care Team (Late st Contact Info) Description 08/21/2013 Documentation [facility] [place] [address] [place] [address] Family Medicine, Physician [facility] [place] [address] Social History Tobacco Use Types Packs/Day Years [...] on filedocumented in this encounter Care Teams Slide Machine Tender Relationship Specialty Start Date End Date Danielle Smith NP PCP - General 01/27/17 08/04/22 documented as of this encounter
--- OUTSIDE RECORDS SUMMARY | 2024-07-29 09:52 | XMS_ITS | Encounter Summary ---
Author Organization [facility] Address [address] [place] [address] Phone Care Team Providers Care Product Development Technician Name Role Phone Danielle Smith NP Primary Care Provider Maritza oliveira Encounter Details Date Type Department Care Team (Late st Contact Info) Description 09/19/2016 Documentation [facility] [place] [facility] [place] [address] Family Medicine, Physician [facility] [place] [address] Social History Tobacco Use Types Packs/Day Years [...] on filedocumented in this encounter Care Teams Product Development Technician Relationship Specialty Start Date End Date Danielle Smith NP PCP - General 01/27/17 08/04/22 documented as of this encounter
--- OUTSIDE RECORDS SUMMARY | 2024-07-29 09:52 | XMS_ITS | Encounter Summary ---
Author Organization [facility] Address [address] [place] [address] Phone Care Team Providers Care Field Sales Manager Name Role Phone Danielle Smith AUTO SPECIALTY SERVICES MANAGER Primary Care Provider Maritza oliveira Encounter Details Date Type Department Care Team (Late st Contact Info) Description 07/14/2014 Documentation [facility] [place] [address] [place] [address] Family Medicine, Physician [facility] [place] [address] Social History Tobacco Use Types Packs/Day Years [...] on filedocumented in this encounter Care Teams Field Sales Manager Relationship Specialty Start Date End Date Danielle Smith NP PCP - General 01/27/17 08/04/22 documented as of this encounter
== END 2024-07-29 09:49 | disposition left against medical advice (07) ==
PROVIDERS: Emergency Provider Emergency Medicine; PCP Physician Assistant
DX: R11.10 Vomiting, unspecified (principal); Z53.21 Procedure and treatment not carried out due to patient leaving prior to being seen by health care provider
CPT/HCPCS: 99281

== ENCOUNTER 2024-08-05 08:18 | Emergency (ER) | payer OTHER, SELFPAY ==
--- NOTE | ~2024-08-05 | XR_ITS ---
CLINICAL HISTORY: fall pain 3 view right ankle Comparison: None Findings: No fracture or malalignment. No significant osteoarthritis. Tiny posterior calcaneal enthesophyte. A tibiotalar joint effusion is present. IMPRESSION: Tibiotalar joint effusion without evidence of fracture. This document has been electronically signed by: Adria Mike DO on 08/05/2024 09:15:01
[2024-08-05 08:31] VITALS: BP 138/73; PULSE 88; RESP 16; TEMP 36.5; O2SAT 97; BMI 40.8
--- NOTE | 2024-08-05 08:40 | ED.GENADULT ---
HPI - General Adult General Chief complaint: Extremity Injury, Lower Stated complaint: R Ankle Pain Injury 08/05/24 Time Seen by Provider: 08/05/24 08:40 Source: patient, RN notes reviewed and old records reviewed Mode of arrival: ambulatory Limitations: no limitations History of Present Illness ED Provider: Juany HPI narrative: Patient is a 29-year-old male presenting with complaint of right ankle pain and swelling since yesterday. Slipped on ice while shoveling, unsure of exact mechanism. Pain and swelling to lateral ankle. Denies foot pain. Denies numbness or tingling. Denies head strike or loss of consciousness, denies head, neck or back pain. MD complaint: ankle pain Onset (ago): hour(s) Related Data Previous Rx's ?Medication ?Instructions ?Recorded qilzvfbm-wtjezztvt-liojsfekc 3.5 4 drp otic (ear) left Q8H 5 days 07/28/20 mg/mL-10,000 unit/mL-1 % ear #10 mL solution naproxen 500 mg tablet 500 mg PO BID PRN pain 7 days #14 08/22/22 tabs prednisone 20 mg tablet 60 mg (3 x 20 mg) PO DAILY 7 days 08/22/22 #21 tabs ondansetron 4 mg disintegrating 4 mg PO Q8H 3 days #9 tabs 09/20/23 tablet Allergies Allergy/AdvReac Type Severity Reaction Status Date / Time amoxicillin [AMOXICILLIN] Allergy Unknown HIVES Verified 08/05/24 08:33 plum [PLUMS] Allergy Unknown HIVES Verified 08/05/24 08:33 APPLE JUICE Allergy Unknown HIVES Uncoded 07/29/24 07:54 SEAFOOD Allergy Unknown DIFFICULTY Uncoded 07/29/24 07:54 BREATHING Review of Systems Review of Systems: As per HPI Yes all other systems are reviewed and are negative Constitutional: Constitutional: Reports as per HPI [facility] Family History Family History Mother Cancer, uterine Other Alzheimer disease Mental problem Social History Social History Housing: House Alcohol intake: never Patient Tobacco Use Status: Never used Tobacco Smoked in Last 30 Days: No e-Cigarette/Vaping Use: Never Used Second Hand Smoke Exposure: Yes Use of substances other than those prescribed or required for medical reasons: Yes Substance Use Type: Marijuana Advance Directives: No Advance Directives Information Provided: Yes service: No Current occupational status: employed Current occupation: works for [employer] Physical Exam ED Vital Signs: Vital Signs - 24 hr 08/05/24 08:31 Temperature 97.7 F Pulse Rate 88 Respiratory Rate 16 Blood Pressure 138/73 Pulse Oximetry 97 Oxygen Delivery Method Room Air BMI result Body Mass Index 40.8 Vital signs have been reviewed and appear to be correct. Blood pressure normal. Heart rate normal. Respiratory rate normal. Temperature normal. Oxygen saturation normal. Const General: cooperative, healthy appearing and no acute distress Orientation/consciousness: oriented to person, oriented to place, oriented to time and patient oriented x3 Limitations: no limitations HENMT Head: Yes normocephalic and Yes atraumatic Ears: external ears normal General nose exam: Normal external nose present Face and sinus: Yes face symmetric Mouth: oropharynx normal and moist mucous membranes Throat: Yes uvula midline Eyes Pupils: Equal, round and reactive pupils present Neck Neck: Yes normal visual inspection and Yes supple Resp Effort & Inspection: normal respiratory effort and able to speak in complete sentences Auscultation: clear to auscultation bilaterally Cardio Rate: regular rate Rhythm: regular rhythm Heart sounds: S1 normal heart sound present and S2 normal heart sound present GI Palpation (GI): Soft to palpation and nontender Auscultation: normoactive bowel sounds General: Yes no CVA tenderness Back/Spine/Pelvis Back: no CVA tenderness Skin General skin exam: elasticity normal and turgor normal Neuro General: oriented to person, oriented to place, oriented to time, patient oriented x3, moves all extremities, no focal motor deficits and CN's II-XI intact bilaterally Cranial nerves: Yes Equal, round and reactive pupils present Cognition (Neuro): normal cognition Extrem General: Yes full ROM, Yes no pedal edema and Yes no calf tenderness Right lower extremity: ankle Details: tenderness Location: of the lateral malleolus and swelling Details: laterally; ROM abnormal (limited r/t pain) and no ecchymosis and foot Details: normal capillary refill, normal to inspection, toes with normal ROM and vascular exam Details: dorsalis pedis pulse present, posterior tibial pulse present and normal capillary refill; no tenderness Psych Mental Status: mental status grossly normal Affect: normal affect Thought process: Normal thought process present Medical Decision Making Medical Decision Making [facility] Narrative: Patient is a 29-year-old male presenting with complaint of right ankle pain and swelling since yesterday. On exam patient is awake, A+Ox3, VS WNL, afebrile, normal neurological exam without focal deficits, physical exam findings as above. Given reported symptoms and physical exam findings, initial differential includes but is not limited to right ankle strain, sprain, fracture, dislocation. X-ray notable for tibiotalar effusion, no acute fracture. My interpretation is in agreement with the radiologist's interpretation. Differential Diagnosis Differential Diagnoses: The differential diagnosis associated with the presentation includes As per [facility] Independent Interpretation I performed an independent interpretation of an: Plain X-Ray Interpretation: No acute fracture right ankle, tibiotalar joint effusion Radiology Impression Discussion of test interpretation with radiology: I have reviewed the radiologist's reading. Radiologist Impression: 3 view right ankle Comparison: None Findings: No fracture or malalignment. No significant osteoarthritis. Tiny posterior calcaneal enthesophyte. A tibiotalar joint effusion is present. IMPRESSION: Tibiotalar joint effusion without evidence of fracture. External Record Review External record reviewed: Inpatient record, Office record and Outpatient record Discharge Plan Discharge Clinical Impression: Right ankle sprain Patient Disposition: Home, Self-Care Instructions: Ankle Sprain (DC), Crutch Instructions (ED), How to Use an Elastic Bandage (ED), Ankle Stirrup Splint (ED), R.I.C.E. Treatment (ED) Additional Instructions: You have been evaluated in the emergency department today for ankle pain. Your evaluation did not find evidence of medical conditions requiring emergent intervention at this time. We have provided crutches for you to use while your ankle heals. Please rest, ice, and elevate your ankle, and resume normal activities as tolerated. We recommend you take 600mg ibuprofen every 6 hours or 650mg Tylenol every 6 hours as needed for pain. If Needed you can alternate these medications as they take 1 medication every 3 hours. For instance at noon take ibuprofen, then at 3:00 p.m. take Tylenol, then at 6:00 p.m. take ibuprofen. Please schedule an appointment for follow-up with your primary care provider this week. Return to the emergency department if you experience worsening pain, numbness, tingling, change of color in your ankle, foot or toes, or any other concerning symptoms. Prescriptions: No Action naproxen 500 mg tablet 500 mg PO BID PRN (Reason: pain) 7 Days Qty: 14 0RF prednisone 20 mg tablet 60 mg PO DAILY 7 Days Qty: 21 0RF ondansetron 4 mg tablet,disintegrating 4 mg PO Q8H 3 Days Qty: 9 0RF xrxdcelw-wwetgjrsc-DL 3.5-10,000-1 mg/mL-unit/mL-% solution 4 drp otic (ear) left Q8H 5 Days Qty: 10 0RF Referrals: [facility] [place] [facility] [Provider Group] Stand Alone Forms: Work/School Release Print Language: Malagasy
--- OUTSIDE RECORDS SUMMARY | 2024-08-05 09:03 | XMS_ITS | Encounter Summary ---
Author Organization [facility] Address [address] [place] [address] Phone Care Team Providers Care Tube Test Technician Name Role Phone Danielle Smith COMMODITY MERCHANT Primary Care Provider Maritza oliveira Encounter Details Date Type Department Care Team (Late st Contact Info) Description 10/02/2013 Documentation [facility] [place] Family Medicine [address] [place] [address] Family Medicine, Physician [facility] [place] [address] Social History Tobacco Use Types Packs/Day Years [...] on filedocumented in this encounter Care Teams Tube Test Technician Relationship Specialty Start Date End Date Danielle Smith NP PCP - General 01/27/17 08/04/22 documented as of this encounter
--- OUTSIDE RECORDS SUMMARY | 2024-08-05 09:03 | XMS_ITS | Encounter Summary ---
Author Organization [facility] Address [address] [place] [address] Phone Care Team Providers Care Seafood Service Team Member Name Role Phone Danielle Smith APPLIANCE COUNSELOR Primary Care Provider Maritza oliveira Encounter Details Date Type Department Care Team (Late st Contact Info) Description 07/14/2014 [place]ation [facility] [place] [address] [place] [address] Family Medicine, Physician [place] [address] Social History Tobacco Use Types Packs/Day Years [...] on filedocumented in this encounter Care Teams Seafood Service Team Member Relationship Specialty Start Date End Date Danielle Smith NP PCP - General 01/27/17 08/04/22 documented as of this encounter
--- OUTSIDE RECORDS SUMMARY | 2024-08-05 09:03 | XMS_ITS | Encounter Summary ---
Author Organization [facility] Address [address] [place] [address] Phone Care Team Providers Care Electrician Crane Maintenance Name Role Phone Danielle Smith NP Primary Care Provider Maritza oliveira Encounter Details Date Type Department Care Team (Late st Contact Info) Description 07/11/2016 Documentation [facility] [place] Family Medicine [facility] [place] [address] Family Medicine, Physician [facility] [address] Social History Tobacco Use Types Packs/Day Years [...] on filedocumented in this encounter Care Teams Electrician Crane Maintenance Relationship Specialty Start Date End Date Danielle Smith NP PCP - General 01/27/17 08/04/22 documented as of this encounter
--- OUTSIDE RECORDS SUMMARY | 2024-08-05 09:03 | XMS_ITS | Encounter Summary ---
Author Organization [facility] Address [address] [place] [address] Phone Care Team Providers Care Masseur/Masseuse Name Role Phone Danielle Smith AMMUNITION ASSEMBLY LABORER Primary Care Provider Maritza oliveira Encounter Details Date Type Department Care Team (Late st Contact Info) Description 10/20/2015 Documentation [facility] [place] Family Medicine [address] [place] [address] Family Medicine, Physician [facility] [place] [address] Social History Tobacco Use Types Packs/Day Years [...] on filedocumented in this encounter Care Teams Masseur/Masseuse Relationship Specialty Start Date End Date Danielle Smith NP PCP - General 01/27/17 08/04/22 documented as of this encounter
--- OUTSIDE RECORDS SUMMARY | 2024-08-05 09:03 | XMS_ITS | Encounter Summary ---
Author Organization [facility] Address [address] [place] [address] Phone Care Team Providers Care Forest Resource Specialist Name Role Phone Danielle Smith CONSULTING BUSINESS DEVELOPER Primary Care Provider Maritza oliveira Encounter Details Date Type Department Care Team (Late st Contact Info) Description 08/21/[address] [facility] [place] Family Medicine [address] [place] [address] Family Medicine, Physician [facility] [place] [address] Social History Tobacco Use Types Packs/Day Years [...] on filedocumented in this encounter Care Teams Forest Resource Specialist Relationship Specialty Start Date End Date Danielle Smith NP PCP - General 01/27/17 08/04/22 documented as of this encounter
--- OUTSIDE RECORDS SUMMARY | 2024-08-05 09:03 | XMS_ITS | Encounter Summary ---
Author Organization [facility] Address [address] [place] [address] Phone Care Team Providers Care Well Point Pumping Supervisor Name Role Phone Danielle Smith NP Primary Care Provider Maritza oliveira Encounter Details Date Type Department Care Team (Late st Contact Info) Description 08/10/2016 Documentation [facility] [place] [address] Family Medicine, [place] [address] Social History Tobacco Use Types Packs/Day Years [...] on filedocumented in this encounter Care Teams Well Point Pumping Supervisor Relationship Specialty Start Date End Date Danielle Smith NP PCP - General 01/27/17 08/04/22 documented as of this encounter
--- OUTSIDE RECORDS SUMMARY | 2024-08-05 09:03 | XMS_ITS | Encounter Summary ---
Author Organization [facility] Address [address] [place] [address] Phone Care Team Providers Care Shell Freezing Machine Operator Name Role Phone Danielle Smith NP Primary Care Provider Maritza oliveira Encounter Details Date Type Department Care Team (Late st Contact Info) Description 04/04/2016 Documentation [facility] [place] [address] [place] [address] Family Medicine, Physician [facility] [place] [address] Social History Tobacco Use Types Packs/Day Years [...] on filedocumented in this encounter Care Teams Shell Freezing Machine Operator Relationship Specialty Start Date End Date Danielle Smith NP PCP - General 01/27/17 08/04/22 documented as of this encounter
--- OUTSIDE RECORDS SUMMARY | 2024-08-05 09:03 | XMS_ITS | Encounter Summary ---
Author Organization [facility] Address [address] [place] [address] Phone Care Team Providers Care Material Clerk Name Role Phone Danielle Smith NP Primary Care Provider Maritza oliveira Encounter Details Date Type Department Care Team (Late st Contact Info) Description 03/23/2016 Documentation [facility] [place] [address] [place] [address] Family Medicine, Physician [facility] [place] [address] Social History Tobacco Use Types Packs/Day Years [...] on filedocumented in this encounter Care Teams Material Clerk Relationship Specialty Start Date End Date Danielle Smith NP PCP - General 01/27/17 08/04/22 documented as of this encounter
--- OUTSIDE RECORDS SUMMARY | 2024-08-05 09:03 | XMS_ITS | Encounter Summary ---
Author Organization [facility] Address [address] [place] [address] Phone Care Team Providers Care Java Spring Developer Name Role Phone Danielle Smith GREEN FEED ATTENDANT Primary Care Provider Maritza oliveira Encounter Details Date Type Department Care Team (Late st Contact Info) Description 12/16/2013 Documentation [facility] [place] [address] [place] [address] Family Medicine, Physician [facility] [place] [address] Social History Tobacco Use Types Packs/Day Years [...] on filedocumented in this encounter Care Teams Java Spring Developer Relationship Specialty Start Date End Date Danielle Smith NP PCP - General 01/27/17 08/04/22 documented as of this encounter
--- OUTSIDE RECORDS SUMMARY | 2024-08-05 09:03 | XMS_ITS | Encounter Summary ---
Author Organization [facility] Address [address] [place] [address] Phone Care Team Providers Care Smoke Control Supervisor Name Role Phone Danielle Smith NP Primary Care Provider Maritza oliveira Encounter Details Date Type Department Care Team (Late st Contact Info) Description 02/02/2017 Conversion Encounter [facility] - [address] [address] Social History Tobacco Use Types Packs/Day Years [...] on filedocumented in this encounter Care Teams Smoke Control Supervisor Relationship Specialty Start Date End Date Danielle Smith NP PCP - General 01/27/17 08/04/22 documented as of this encounter
--- OUTSIDE RECORDS SUMMARY | 2024-08-05 09:03 | XMS_ITS | Encounter Summary ---
Author Organization [facility] Address [address] [place] [address] Phone Care Team Providers Care Supervisor Color Paste Mixing Name Role Phone Danielle Smith NP Primary Care Provider Maritza oliveira Encounter Details Date Type Department Care Team (Late st Contact Info) Description 07/11/2016 Documentation [facility] [place] [facility] [place] [address] Family Medicine, Physician [facility] [place] [address] Social History Tobacco Use Types Packs/Day Years [...] filedocumented in this encounter Care Teams Supervisor Color Paste Mixing Relationship Specialty Start Date End Date Danielle Smith NP PCP - General 01/27/17 08/04/22 documented as of this encounter
--- OUTSIDE RECORDS SUMMARY | 2024-08-05 09:03 | XMS_ITS | Clinical Summary ---
Author Organization [facility] Address [address] [place] [address] Phone Care Team Providers Care Loader Semiconductor Dies Name Role Phone Unavailable Primary Care Provider [...] complete this topic Procedures * Due to [place] Tomorrow law, this organization might not be sharing sensitive test results. Procedure Name Priority Date/Time Associated Diagnosis Comments CHLAMYDIA AND GONORRHEA, AMPLIFIED Routine 02/16/2016 2:09 PM EDT from Last 3 Months or Most Recently Relevant to Health Maintenance Results * Due to [place] Tomorrow law, this organization might not be sharing sensitive test results. * Chlamydia and Gonorrhoea, Amplified (02/16/2016 2:09 PM EDT) URINE GC AMP PROBE NEGATIVE [facility] Comment: No Neisseria Gonorrhoeae RNA detected in this patient's sample (REFERENCE RANGE/NORMAL VALUE: NOT DETECTED) NOTE: This test uses it infrastructure manager-mediated amplification method to detect rRNA from C.Trachomatis [...] without risk of sexual abuse. Consult the [facility] if needed. Contact phone number . Therapeutic failure or success cannot be determined with the Aptima Combo2 assay since nucleic acid may persist following appropriate antimicrobial therapy. The Centers for Disease Control and Prevention (CDC) recommends confirmatory retesting using culture or a different nucleic acid amplification test when positive results occur, if indicated. Testing performed or reported by [facility], a Service of [facility], [address] [place] [address] CLIA ??[id number] Werner Gilbert MD, PhD, Mercury Cracking Tester URINE CHLAMYDIA AMP PROBE NEGATIVE [facility] Comment: No Chlamydia Trachomatis RNA detected in this patient's sample (REFERENCE RANGE/NORMAL VALUE: NOT DETECTED) 02/16/2016 2:09 PM EDT Narrative [facility] - 02/16/2016 2:09 PM EDT URINE CHLAMYDIA GC AMP PROBE us Danielle Smith NP LAB MICROBIOLOGY - GENERAL OR DERABLES Final Result [facility] [address] [place] [address], from Last 3 Months or Most Recently Relevant to Health Maintenance Insurance ELIZ BRYANT [id number] [facility] NON PCC
--- OUTSIDE RECORDS SUMMARY | 2024-08-05 09:03 | XMS_ITS | Encounter Summary ---
Author Organization [facility] Address [address] [place] [address] Phone Care Team Providers Care Warehouse Order Puller Name Role Phone Danielle Smith CHILDREN'S BOOK AUTHOR Primary Care Provider Maritza oliveira Encounter Details Date Type Department Care Team (Late st Contact Info) Description 12/25/2014 Documentation [facility] [place] [address] [place] [address] Family Medicine, Physician [facility] [place] [address] Social History Tobacco Use Types Packs/Day Years [...] filedocumented in this encounter Care Teams Warehouse Order Puller Relationship Specialty Start Date End Date Danielle Smith NP PCP - General 01/27/17 08/04/22 documented as of this encounter
--- OUTSIDE RECORDS SUMMARY | 2024-08-05 09:03 | XMS_ITS | Encounter Summary ---
Author Organization [facility] Address [address] [place] [address] Phone Care Team Providers Care Theatre Professor Name Role Phone Danielle Smith HAND WEAVER Primary Care Provider Maritza oliveira Encounter Details Date Type Department Care Team (Late st Contact Info) Description 07/07/2015 Documentation [facility] [place] [address] [place] [address] Family Medicine, Physician [facility] [place] [address] Social History Tobacco Use Types Packs/Day Years [...] on filedocumented in this encounter Care Teams Theatre Professor Relationship Specialty Start Date End Date Danielle Smith NP PCP - General 01/27/17 08/04/22 documented as of this encounter
--- OUTSIDE RECORDS SUMMARY | 2024-08-05 09:03 | XMS_ITS | Encounter Summary ---
Author Organization [facility] Address [address] [place] [address] Phone Care Team Providers Care Laborer Concrete Paving Name Role Phone Danielle Smith NP Primary Care Provider Maritza oliveira Encounter Details Date Type Department Care Team (Late st Contact Info) Description 09/19/2016 Documentation [facility] [place] [facility] [place] [address] Family Medicine, Physician [facility] [place] [address] Social History Tobacco Use Types Packs/Day Years [...] on filedocumented in this encounter Care Teams Laborer Concrete Paving Relationship Specialty Start Date End Date Danielle Smith NP PCP - General 01/27/17 08/04/22 documented as of this encounter
--- OUTSIDE RECORDS SUMMARY | 2024-08-05 09:03 | XMS_ITS | Encounter Summary ---
Author Organization [facility] Address [address] [place] [address] Phone Care Team Providers Care Masticator Name Role Phone Danielle Smith NP Primary Care Provider Maritza oliveira Encounter Details Date Type Department Care Team (Late st Contact Info) Description 07/11/2016 [place]ation [facility] [place] [facility] [place] [address] Family Medicine, Physician [facility] [place] [address] Social History Tobacco Use Types Packs/Day Years [...] on filedocumented in this encounter Care Teams Masticator Relationship Specialty Start Date End Date Danielle Smith NP PCP - General 01/27/17 08/04/22 documented as of this encounter
--- OUTSIDE RECORDS SUMMARY | 2024-08-05 09:03 | XMS_ITS | Encounter Summary ---
Author Organization [facility] Address [address] [place] [address] Phone Care Team Providers Care Nurse'S Assistant Name Role Phone Danielle Smith NP Primary Care Provider Maritza oliveira Encounter Details Date Type Department Care Team (Late st Contact Info) Description 09/26/2016 Documentation [facility] [place] [facility] [place] [address] Family Medicine, Physician [facility] [place] [address] Social History Tobacco Use Types Packs/Day Years [...] on filedocumented in this encounter Care Teams Nurse'S Assistant Relationship Specialty Start Date End Date Danielle Smith NP PCP - General 01/27/17 08/04/22 documented as of this encounter
[2024-08-05] MEDS: oxyCODONE HCl Immed Release 5 MG TABLET PO (09:32)
[2024-08-05 09:57] VITALS: BP 138/73; PULSE 88; RESP 16; TEMP 36.5; O2SAT 97
== END 2024-08-05 09:58 | disposition home or self-care (01) ==
PROVIDERS: Emergency Provider Emergency Medicine; PCP Physician Assistant
DX: S93.401A Sprain of unspecified ligament of right ankle, initial encounter (principal); M25.571 Pain in right ankle and joints of right foot; X50.1XXA Overexertion from prolonged static or awkward postures, initial encounter; Y93.H1 Activity, digging, shoveling and raking; Y92.007 Garden or yard of unspecified non-institutional (private) residence as the place of occurrence of the external cause; Y99.8 Other external cause status; Z79.899 Other long term (current) drug therapy
CPT/HCPCS: 73610; 99283; 99284

== ENCOUNTER → 2024-08-05 08:38 | Outpatient (BNV) | payer OTHER, SELFPAY | PROVIDERS: Emergency Provider Emergency Medicine; PCP Physician Assistant; Visit Provider Radiology Diagnostic Radiology | DX: M25.471 Effusion, right ankle (principal) | CPT/HCPCS: 73610 ==

== ENCOUNTER 2024-08-23 08:17 | Outpatient (AMB) | payer OTHER, SELFPAY ==
--- NOTE | 2024-08-23 08:19 | A.OFFVIS_ITS ---
Intake Visit Reasons: New Pt - Right ankle sprain, DOI 08/04/24 Intake Note: Purnima is a 29 year old male who presents today for a evaluation of his right ankle sprain, DOI 08/04/24. Patient states he was shoveling when he slipped and fell on ice. He started to have pain on the lateral aspect of the ankle. Today i s pain is a 2/10 on the pain scale. Patient was given crutches at the ED. He notices that his pain is a little worse with certain movements. IMPRESSION: Tibiotalar joint effusion without evidence of fracture. Allergies amoxicillin [AMOXICILLIN] Allergy (Unknown, Verified 08/23/24 08:21) HIVES plum [PLUMS] Allergy (Unknown, Verified 08/23/24 08:21) HIVES APPLE JUICE Allergy (Unknown, Uncoded 07/29/24 07:54) HIVES SEAFOOD Allergy (Unknown, Uncoded 07/29/24 07:54) DIFFICULTY BREATHING HPI HPI New Pt - Right ankle sprain, DOI 08/04/24: Details: Mr. Rios is a 29-year-old male who presents to the office today for evaluation of a right ankle sprain that occurred on 08/04/2024. Patient reports that he slipped and fell on ice. He is unsure if he inverted or everted the ankle during the fall. Since then he has noticed a slight decrease in pain but continues to struggle with range of motion and ambulation. He was given a stirrup while in the emergency department. [facility] Family History Mother Cancer, uterine Other Alzheimer disease Mental problem Social History (Updated 08/23/24 @ 08:24 by Jane Guerra) Housing: House Alcohol intake: never Patient Tobacco Use Status: Never used Tobacco e-Cigarette/Vaping Use: Never Used Second Hand Smoke Exposure: Yes Substance Use Type: Marijuana service: No Current occupational status: employed Current occupation: [employer] Review of Systems Const All systems reviewed & are unremarkable except as noted in HPI and below Physical Exam Const General: cooperative, healthy appearing and no acute distress Resp Effort & Inspection: normal respiratory effort and able to speak in complete sentences Cardio Rate: regular rate Peripheral pulses: Peripheral pulses 2+ throughout Skin Lesions: no lesions Rashes: no rashes Extrem Other: Right ankle: Resolving ecchymosis at the base of the toes. Slight tenderness to palpation over the medial malleolus along the tibial tendons. No tenderness to palpation over the ATFL or deltoid. Patient is able to demonstrate dorsiflexion, plantar flexion, pronation and supination. Negative anterior drawer. Sensation intact. Pedal Pulse intact. Assessment & Plan Assessment & Plan (1) Right ankle sprain: Code(s): S93.401A - Sprain of unspecified ligament of right ankle, initial encounter Category: Medical Plan Mr. Rios is a 29-year-old male who presents to the office today for evaluation of a right ankle sprain that occurred on 08/04/2024. Patient reports that he slipped and fell on ice. He is unsure if he inverted or everted the ankle during the fall. Since then he has noticed a slight decrease in pain but continues to struggle with range of motion and ambulation. He was given a stirrup while in the emergency department. While in the office today, we discussed the role of physical therapy and ankle bracing. The patient was fit for a lace-up ankle brace off the shelf. They will wear this during activities. I have also placed an order for physical therapy. They will follow up in 6 weeks, sooner if needed. X-rays of the left ankle which were obtained on 08/05/2024 were reviewed by me, Nicole Antoine PA-C, revealed no acute fracture dislocation. Coding Level of Care Code New Pt Level 3 (79914) Diagnoses Right ankle sprain S93.401A
--- OUTSIDE RECORDS SUMMARY | 2024-08-23 08:40 | XMS_ITS | Encounter Summary ---
Author Organization [facility] Address [address] [place] [address] Phone Care Team Providers Care Interactive Media Marketing Director Name Role Phone Danielle Smith NP Primary Care Provider Maritza oliveira Encounter Details Date Type Department Care Team (Late st Contact Info) Description 09/19/2016 Documentation [facility] [place] [facility] [place] [address] Family Medicine, Physician [facility] [place] [address] Social History Tobacco Use Types Packs/Day Years [...] on filedocumented in this encounter Care Teams Interactive Media Marketing Director Relationship Specialty Start Date End Date Danielle Smith NP PCP - General 01/27/17 08/04/22 documented as of this encounter
--- OUTSIDE RECORDS SUMMARY | 2024-08-23 08:40 | XMS_ITS | Clinical Summary ---
Author Organization [facility] Address [address] [place] [address] Phone Care Team Providers Care Occupational Therapist Rehab Manager Name Role Phone Unavailable Primary Care [...] complete this topic Procedures * Due to [place] Vow To [employer] law, this organization might not be sharing sensitive test results. Procedure Name Priority Date/Time Associated Diagnosis Comments CHLAMYDIA AND GONORRHEA, AMPLIFIED Routine 02/16/2016 2:09 PM EDT from Last 3 Months or Most Recently Relevant to Health Maintenance Results * Due to [place]ow [place] law, this organization might not be sharing sensitive test results. * Chlamydia and Gonorrhoea, Amplified (02/16/2016 2:09 PM EDT) URINE GC AMP PROBE NEGATIVE [facility] Comment: No Neisseria Gonorrhoeae RNA detected in this patient's sample (REFERENCE RANGE/NORMAL VALUE: NOT DETECTED) NOTE: This test uses field assessor-mediated amplification method to detect rRNA from C.Trachomatis [...] without risk of sexual abuse. Consult the [facility] if needed. Contact phone number . Therapeutic failure or success cannot be determined with the Aptima Combo2 assay since nucleic acid may persist following appropriate antimicrobial therapy. The Centers for Disease Control and Prevention (CDC) recommends confirmatory retesting using culture or a different nucleic acid amplification test when positive results occur, if indicated. Testing performed or reported by [facility], a Service of [facility], [address] [place] [address] CLIA ??[id number] Werner Gilbert MD, PhD, Federal Judicial Law Clerk URINE CHLAMYDIA AMP PROBE NEGATIVE [facility] Comment: No Chlamydia Trachomatis RNA detected in this patient's sample (REFERENCE RANGE/NORMAL VALUE: NOT DETECTED) 02/16/2016 2:09 PM EDT Narrative [facility] - 02/16/2016 2:09 PM EDT URINE CHLAMYDIA GC AMP PROBE us Danielle Smith NP LAB MICROBIOLOGY - GENERAL OR DERABLES Final Result [facility] [address] [place] [address], from Last 3 Months or Most Recently Relevant to Health Maintenance Insurance ELIZ BRYANT [id number] [facility] NON PCC
--- OUTSIDE RECORDS SUMMARY | 2024-08-23 08:40 | XMS_ITS | Encounter Summary ---
Author Organization [facility] Address [address] [place] [address] Phone Care Team Providers Care Professional Caster Name Role Phone Danielle Smith NP Primary Care Provider Maritza oliveira Encounter Details Date Type Department Care Team (Late st Contact Info) Description 03/23/2016 Documentation [facility] [place] [address] [place] [address] Family Medicine, Physician [facility] [place] [address] Social History Tobacco Use Types Packs/Day Years [...] on filedocumented in this encounter Care Teams Professional Caster Relationship Specialty Start Date End Date Danielle Smith NP PCP - General 01/27/17 08/04/22 documented as of this encounter
--- OUTSIDE RECORDS SUMMARY | 2024-08-23 08:40 | XMS_ITS | Encounter Summary ---
Author Organization [facility] Address [address] [place] [address] Phone Care Team Providers Care Casting And Locker Room Servicer Name Role Phone Danielle Smith NP Primary Care Provider Maritza oliveira Encounter Details Date Type Department Care Team (Late st Contact Info) Description 08/10/2016 Documentation [facility] [place] [facility] [place] [address] Family Medicine, Physician [facility] [place] [address] Social History Tobacco Use Types Packs/Day Years [...] on filedocumented in this encounter Care Teams Casting And Locker Room Servicer Relationship Specialty Start Date End Date Danielle Smith NP PCP - General 01/27/17 08/04/22 documented as of this encounter
--- OUTSIDE RECORDS SUMMARY | 2024-08-23 08:40 | XMS_ITS | Encounter Summary ---
Author Organization [facility] Address [address] [place] [address] Phone Care Team Providers Care Pet Training Instructor Name Role Phone Danielle Smith NP Primary Care Provider Maritza oliveira Encounter Details Date Type Department Care Team (Late st Contact Info) Description 07/11/2016 Documentation [facility] [place] [facility] [place] [address] Family Medicine, Physician [facility] [place] [address] Social History Tobacco Use Types Packs/Day Years [...] on filedocumented in this encounter Care Teams Pet Training Instructor Relationship Specialty Start Date End Date Danielle Smith NP PCP - General 01/27/17 08/04/22 documented as of this encounter
--- OUTSIDE RECORDS SUMMARY | 2024-08-23 08:40 | XMS_ITS | Encounter Summary ---
Author Organization [facility] Address [address] [place] [address] Phone Care Team Providers Care Shot Core Drill Operator Name Role Phone Danielle Smith NP Primary Care Provider Maritza oliveira Encounter Details Date Type Department Care Team (Late st Contact Info) Description 02/02/2017 Conversion Encounter [facility] - [address] [address] Social History Tobacco Use Types Packs/Day Years [...] on filedocumented in this encounter Care Teams Shot Core Drill Operator Relationship Specialty Start Date End Date Danielle Smith NP PCP - General 01/27/17 08/04/22 documented as of this encounter
--- OUTSIDE RECORDS SUMMARY | 2024-08-23 08:40 | XMS_ITS | Encounter Summary ---
Author Organization [facility] Address [address] [place] [address] Phone Care Team Providers Care Emergency Manager Name Role Phone Danielle Smith CNA PER DIEM Primary Care Provider Maritza oliveira Encounter Details Date Type Department Care Team (Late st Contact Info) Description 12/25/2014 Documentation [facility] [place] [address] [place] [address] Family Medicine, Physician [facility] [place] [address] Social History Tobacco Use Types Packs/Day Years [...] on filedocumented in this encounter Care Teams Emergency Manager Relationship Specialty Start Date End Date Danielle Smith NP PCP - General 01/27/17 08/04/22 documented as of this encounter
--- OUTSIDE RECORDS SUMMARY | 2024-08-23 08:40 | XMS_ITS | Encounter Summary ---
Author Organization [facility] Address [address] [place] [address] Phone Care Team Providers Care Actuarial Assistant Name Role Phone Danielle Smith NEGATIVE RESTORER Primary Care Provider Maritza oliveira Encounter Details Date Type Department Care Team (Late st Contact Info) Description 12/16/2013 Documentation [facility] [place] [address] [place] [address] Family Medicine, Physician [facility] [place] [address] Social History Tobacco Use Types Packs/Day Years [...] on filedocumented in this encounter Care Teams Actuarial Assistant Relationship Specialty Start Date End Date Danielle Smith NP PCP - General 01/27/17 08/04/22 documented as of this encounter
--- OUTSIDE RECORDS SUMMARY | 2024-08-23 08:40 | XMS_ITS | Encounter Summary ---
Author Organization [facility] Address [address] [place] [address] Phone Care Team Providers Care Pit Boss Name Role Phone Danielle Smith MEDICAL LANGUAGE SPECIALIST Primary Care Provider Maritza oliveira Encounter Details Date Type Department Care Team (Late st Contact Info) Description 10/20/2015 Documentation [facility] [place] [address] [place] [address] Family Medicine, Physician [facility] [place] [address] Social History Tobacco Use Types Packs/Day Years [...] on filedocumented in this encounter Care Teams Pit Boss Relationship Specialty Start Date End Date Danielle Smith NP PCP - General 01/27/17 08/04/22 documented as of this encounter
--- OUTSIDE RECORDS SUMMARY | 2024-08-23 08:40 | XMS_ITS | Encounter Summary ---
Author Organization [facility] Address [address] [place] [address] Phone Care Team Providers Care Cut In Worker Name Role Phone Danielle Smith NP Primary Care Provider Maritza oliveira Encounter Details Date Type Department Care Team (Late st Contact Info) Description 07/11/2016 Documentation [facility] [place] [facility] [address] Family Medicine, Physician [facility] [address] Social History Tobacco Use Types Packs/Day Years [...] on filedocumented in this encounter Care Teams Cut In Worker Relationship Specialty Start Date End Date Danielle Smith NP PCP - General 01/27/17 08/04/22 documented as of this encounter
--- OUTSIDE RECORDS SUMMARY | 2024-08-23 08:40 | XMS_ITS | Encounter Summary ---
Author Organization [facility] Address [address] [place] [address] Phone Care Team Providers Care Manager Of Case Management Name Role Phone Danielle Smith NP Primary Care Provider Maritza oliveira Encounter Details Date Type Department Care Team (Late st Contact Info) Description 09/26/2016 Documentation [facility] [place] [facility] [place] [address] Family Medicine, Physician [facility] [place] [address] Social History Tobacco Use Types Packs/Day Years [...] on filedocumented in this encounter Care Teams Manager Of Case Management Relationship Specialty Start Date End Date Danielle Smith NP PCP - General 01/27/17 08/04/22 documented as of this encounter
--- OUTSIDE RECORDS SUMMARY | 2024-08-23 08:40 | XMS_ITS | Encounter Summary ---
Author Organization [facility] Address [address] [place] [address] Phone Care Team Providers Care Human Resources Compensation Analyst Name Role Phone Danielle Smith NP Primary Care Provider Maritza oliveira Encounter Details Date Type Department Care Team (Late st Contact Info) Description 04/04/2016 Documentation [facility] [place] Medicine [address] [place] [address] Family Medicine, Physician [facility] [place] [address] Social History Tobacco Use Types Packs/Day Years [...] on filedocumented in this encounter Care Teams Human Resources Compensation Analyst Relationship Specialty Start Date End Date Danielle Smith NP PCP - General 01/27/17 08/04/22 documented as of this encounter
--- OUTSIDE RECORDS SUMMARY | 2024-08-23 08:40 | XMS_ITS | Encounter Summary ---
Author Organization [facility] Address [address] [place] [address] Phone Care Team Providers Care In Store Marketer Name Role Phone Danielle Smith NP Primary Care Provider Maritza oliveira Encounter Details Date Type Department Care Team (Late st Contact Info) Description 07/11/2016 Documentation [facility] Family Medicine [facility] [place] [address] Family Medicine, Physician [facility] [place] [address] Social History Tobacco Use Types Packs/Day Years [...] on filedocumented in this encounter Care Teams In Store Marketer Relationship Specialty Start Date End Date Danielle Smith NP PCP - General 01/27/17 08/04/22 documented as of this encounter
--- OUTSIDE RECORDS SUMMARY | 2024-08-23 08:40 | XMS_ITS | Encounter Summary ---
Author Organization [facility] Address [address] [place] [address] Phone Care Team Providers Care Powerhouse Oiler Name Role Phone Danielle Smith WALKING DRAGLINE OPERATOR Primary Care Provider Maritza oliveira Encounter Details Date Type Department Care Team (Late st Contact Info) Description 10/02/2013 Documentation [facility] [place] [address] [place] [address] Family Medicine, Physician [facility] [place] [address] Social History Tobacco Use Types Packs/Day Years [...] on filedocumented in this encounter Care Teams Powerhouse Oiler Relationship Specialty Start Date End Date Danielle Smith NP PCP - General 01/27/17 08/04/22 documented as of this encounter
--- OUTSIDE RECORDS SUMMARY | 2024-08-23 08:40 | XMS_ITS | Encounter Summary ---
Author Organization [facility] Address [address] [place] [address] Phone Care Team Providers Care Customs Appraiser Name Role Phone Danielle Smith BRAIDER SETTER Primary Care Provider Maritza oliveira Encounter Details Date Type Department Care Team (Late st Contact Info) Description 07/07/2015 Documentation [facility] [place] [address] [place] [address] Family Medicine, Physician [facility] [place] [address] Social History Tobacco Use Types Packs/Day Years [...] on filedocumented in this encounter Care Teams Customs Appraiser Relationship Specialty Start Date End Date Danielle Smith NP PCP - General 01/27/17 08/04/22 documented as of this encounter
--- OUTSIDE RECORDS SUMMARY | 2024-08-23 08:40 | XMS_ITS | Encounter Summary ---
Author Organization [facility] Address [address] [place] [address] Phone Care Team Providers Care Control Specialist Name Role Phone Danielle Smith LOADER SEMICONDUCTOR DIES Primary Care Provider Maritza oliveira Encounter Details Date Type Department Care Team (Late st Contact Info) Description 07/14/2014 Documentation [facility] [place] [address] [place] [address] Family Medicine, Physician [facility] [place] [address] Social History Tobacco Use Types Packs/Day Years [...] on filedocumented in this encounter Care Teams Control Specialist Relationship Specialty Start Date End Date Danielle Smith NP PCP - General 01/27/17 08/04/22 documented as of this encounter
--- OUTSIDE RECORDS SUMMARY | 2024-08-23 08:40 | XMS_ITS | Encounter Summary ---
Author Organization [facility] Address [address] [place] [address] Phone Care Team Providers Care Link Cutter Name Role Phone Danielle Smith BOW MACHINE OPERATOR Primary Care Provider Maritza oliveira Encounter Details Date Type Department Care Team (Late st Contact Info) Description 08/21/2013 Documentation [facility] [place] [address] [place] [address] Family Medicine, Physician [facility] [address] Social History Tobacco Use Types Packs/Day Years [...] on filedocumented in this encounter Care Teams Link Cutter Relationship Specialty Start Date End Date Danielle Smith NP PCP - General 01/27/17 08/04/22 documented as of this encounter
== END 2024-08-23 08:54 | disposition home or self-care (01) ==
PROVIDERS: PCP Physician Assistant; Visit Provider Physician Assistant
DX: S93.401A Sprain of unspecified ligament of right ankle, initial encounter (principal); W00.0XXA Fall on same level due to ice and snow, initial encounter
CPT/HCPCS: 99203

== ENCOUNTER 2024-10-04 12:41 | Outpatient (AMB) | payer OTHER, SELFPAY ==
--- NOTE | 2024-10-04 12:44 | MHC.OFFVIS ---
Vital Signs 10/04/24 12:56 Height 5 ft 5 in Weight 245 lb BMI 40.8 Intake Visit Reasons: OV-Right ankle sprain, DOI 08/04/24-6 WK f/u Intake Note: Purnima is a 29 year old male who presents today for a follow up of his right ankle sprain, DOI 08/04/24. Patient states he is doing better, he has been working with PT. He notices some discomfort. Allergies amoxicillin [AMOXICILLIN] Allergy (Unknown, Verified 10/04/24 12:55) HIVES plum [PLUMS] Allergy (Unknown, Verified 10/04/24 12:55) HIVES APPLE JUICE Allergy (Unknown, Uncoded 07/29/24 07:54) HIVES SEAFOOD Allergy (Unknown, Uncoded 07/29/24 07:54) DIFFICULTY BREATHING HPI HPI OV-Right ankle sprain, DOI 08/04/24-6 WK f/u: Details: Mr. Rios is a 29-year-old male who presents to the office today for follow-up of right ankle sprain that occurred on 08/04/2024. He has been wearing the lace-up ankle brace as directed. He has been attending physical therapy and has been noticing progression and resolution with his symptoms. [facility] Family History Mother Cancer, uterine Other Alzheimer disease Mental problem Social History Housing: House Alcohol intake: never Patient Tobacco Use Status: Never used Tobacco e-Cigarette/Vaping Use: Never Used Second Hand Smoke Exposure: Yes Substance Use Type: Marijuana service: No Current occupational status: employed Current occupation: [employer] All systems reviewed & are unremarkable except as noted in HPI and below Physical Exam Vital Signs: BMI result Body Mass Index 40.8 Extrem Other: Right ankle: Normal to inspection. No ecchymosis, erythema, or edema. Patient is able to demonstrate dorsiflexion, plantar flexion, pronation and supination. Negative anterior drawer. Sensation intact. Pedal Pulse intact. Assessment & Plan Assessment & Plan (1) Left ankle sprain: Code(s): S93.402A - Sprain of unspecified ligament of left ankle, initial encounter Category: Medical Plan Mr. Rios is a 29-year-old male who presents to the office today for follow-up of right ankle sprain that occurred on 08/04/2024. He has been wearing the lace-up ankle brace as directed. He has been attending physical therapy and has been noticing progression and resolution with his symptoms. On the office today, we discussed continuing physical therapy until her sessions are completed. He will wear the lace-up ankle brace as needed with activities but I did encourage him to come out regularly to avoid stiffness. He will follow up p.r.n., sooner if needed. Coding Level of Care Code Est Pt Level 3 (65162) Diagnoses Left ankle sprain S93.402A
[2024-10-04 12:56] VITALS: BMI 40.8
--- OUTSIDE RECORDS SUMMARY | 2024-10-04 13:17 | XMS_ITS | Encounter Summary ---
Author Organization [facility] Address [address] [place] [address] Phone Care Team Providers Care Field Servicer Name Role Phone Danielle Smith NP Primary Care Provider Maritza oliveira Encounter Details Date Type Department Care Team (Late st Contact Info) Description 09/26/2016 Documentation [facility] [place] Family Medicine [facility] [place] [address] Family Medicine, Physician [facility] [place] [address] Social History Tobacco Use Types Packs/Day Years [...] filedocumented in this encounter Care Teams Field Servicer Relationship Specialty Start Date End Date Danielle Smith NP PCP - General 01/27/17 08/04/22 documented as of this encounter
--- OUTSIDE RECORDS SUMMARY | 2024-10-04 13:17 | XMS_ITS | Encounter Summary ---
Author Organization [facility] Address [address] [place] [address] Phone Care Team Providers Care Dialysis Rn Name Role Phone Danielle Smith DIE TRIPPER Primary Care Provider Maritza oliveira Encounter Details Date Type Department Care Team (Late st Contact Info) Description 07/07/2015 Documentation [facility] [place] Family Medicine [address] [place] [address] Family Medicine, Physician [facility] [place] [address] Social History Tobacco Use Types Packs/Day Years [...] on filedocumented in this encounter Care Teams Dialysis Rn Relationship Specialty Start Date End Date Danielle Smith NP PCP - General 01/27/17 08/04/22 documented as of this encounter
--- OUTSIDE RECORDS SUMMARY | 2024-10-04 13:17 | XMS_ITS | Encounter Summary ---
Author Organization [facility] Address [address] [place] [address] Phone Care Team Providers Care Air Conditioning Specialist Name Role Phone Danielle Smith CHEMICAL LAB TECHNICIAN Primary Care Provider Maritza oliveira Encounter Details Date Type Department Care Team (Late st Contact Info) Description 12/16/[address] [facility] [place] Family Medicine [address] [place] [address] Family Medicine, Physician [facility] [place] [address] Social History Tobacco Use Types Packs/Day Years [...] on filedocumented in this encounter Care Teams Air Conditioning Specialist Relationship Specialty Start Date End Date Danielle Smith NP PCP - General 01/27/17 08/04/22 documented as of this encounter
--- OUTSIDE RECORDS SUMMARY | 2024-10-04 13:17 | XMS_ITS | Encounter Summary ---
Author Organization [facility] Address [address] [place] [address] Phone Care Team Providers Care Cottrell Operator Name Role Phone Danielle Smith RESOURCE ENGINEER Primary Care Provider Maritza oliveira Encounter Details Date Type Department Care Team (Late st Contact Info) Description 08/21/2013 Documentation [facility] [place] [address] [place] [address] Family Medicine, Physician [facility] [place] [address] Social History Tobacco Use Types Packs/Day Years [...] on filedocumented in this encounter Care Teams Cottrell Operator Relationship Specialty Start Date End Date Danielle Smith NP PCP - General 01/27/17 08/04/22 documented as of this encounter
--- OUTSIDE RECORDS SUMMARY | 2024-10-04 13:17 | XMS_ITS | Encounter Summary ---
Author Organization [facility] Address [address] [place] [address] Phone Care Team Providers Care Catheter Finisher And Inspector Name Role Phone Danielle Smith NP Primary Care Provider Maritza oliveira Encounter Details Date Type Department Care Team (Late st Contact Info) Description 07/11/2016 Documentation [facility] [place] [facility] [address] Family Medicine, Physician [facility] [address] Social History Tobacco Use Types Packs/Day Years [...] on filedocumented in this encounter Care Teams Catheter Finisher And Inspector Relationship Specialty Start Date End Date Danielle Smith NP PCP - General 01/27/17 08/04/22 documented as of this encounter
--- OUTSIDE RECORDS SUMMARY | 2024-10-04 13:17 | XMS_ITS | Encounter Summary ---
Author Organization [facility] Address [address] [place] [address] Phone Care Team Providers Care Associate Web Developer Name Role Phone Danielle Smith LOAD PLANNER Primary Care Provider Maritza oliveira Encounter Details Date Type Department Care Team (Late st Contact Info) Description 07/14/2014 Documentation [facility] [place] Family Medicine [address] [place] [address] Family Medicine, Physician [facility] [place] [address] Social History Tobacco Use Types Packs/Day Years [...] on filedocumented in this encounter Care Teams Associate Web Developer Relationship Specialty Start Date End Date Danielle Smith NP PCP - General 01/27/17 08/04/22 documented as of this encounter
--- OUTSIDE RECORDS SUMMARY | 2024-10-04 13:17 | XMS_ITS | Encounter Summary ---
Author Organization [facility] Address [address] [place] [address] Phone Care Team Providers Care Blood Coordinator Name Role Phone Danielle Smith NP Primary Care Provider Maritza oliveira Encounter Details Date Type Department Care Team (Late st Contact Info) Description 04/04/2016 Documentation [facility] [place] [address] [place] [address] Family Medicine, Physician [facility] [place] [address] Social History Tobacco Use Types Packs/Day Years [...] on filedocumented in this encounter Care Teams Blood Coordinator Relationship Specialty Start Date End Date Danielle Smith NP PCP - General 01/27/17 08/04/22 documented as of this encounter
--- OUTSIDE RECORDS SUMMARY | 2024-10-04 13:17 | XMS_ITS | Encounter Summary ---
Author Organization [facility] Address [address] [place] [address] Phone Care Team Providers Care Fermenting Cellars Supervisor Name Role Phone Danielle Smith NP Primary Care Provider Maritza oliveira Encounter Details Date Type Department Care Team (Late st Contact Info) Description 09/19/2016 Documentation [facility] [place] [facility] [place] [address] Family Medicine, Physician [facility] [place] [address] Social History Tobacco Use Types Packs/Day Years [...] on filedocumented in this encounter Care Teams Fermenting Cellars Supervisor Relationship Specialty Start Date End Date Danielle Smith NP PCP - General 01/27/17 08/04/22 documented as of this encounter
--- OUTSIDE RECORDS SUMMARY | 2024-10-04 13:17 | XMS_ITS | Encounter Summary ---
Author Organization [facility] Address [address] [place] [address] Phone Care Team Providers Care Dividend Deposit Voucher Clerk Name Role Phone Danielle mSith NP Primary Care Provider Maritza oliveira Encounter Details Date Type Department Care Team (Late st Contact Info) Description 07/11/2016 Documentation [facility] [place] Family Medicine [facility] [place] [place] [address] Family Medicine, Physician [facility] [place] [address] Social History Tobacco Use Types Packs/Day Years [...] on filedocumented in this encounter Care Teams Dividend Deposit Voucher Clerk Relationship Specialty Start Date End Date Danielle Smith NP PCP - General 01/27/17 08/04/22 documented as of this encounter
--- OUTSIDE RECORDS SUMMARY | 2024-10-04 13:17 | XMS_ITS | Encounter Summary ---
Author Organization [facility] Address [address] [place] [address] Phone Care Team Providers Care Data Analysis Assistant Name Role Phone Danielle Smith NP Primary Care Provider Maritza oliveira Encounter Details Date Type Department Care Team (Late st Contact Info) Description 02/02/2017 Conversion Encounter [facility] - [address] [address] Social History Tobacco Use Types Packs/Day Years [...] on filedocumented in this encounter Care Teams Data Analysis Assistant Relationship Specialty Start Date End Date Danielle Smith NP PCP - General 01/27/17 08/04/22 documented as of this encounter
--- OUTSIDE RECORDS SUMMARY | 2024-10-04 13:17 | XMS_ITS | Encounter Summary ---
Author Organization [facility] Address [address] [place] [address] Phone Care Team Providers Care Senior Care Assistant Name Role Phone Danielle Smith NP Primary Care Provider Maritza oliveira Encounter Details Date Type Department Care Team (Late st Contact Info) Description 03/23/2016 Documentation [facility] [place] [address] [place] [address] Family Medicine, Physician [facility] [place] [address] Social History Tobacco Use Types Packs/Day Years [...] on filedocumented in this encounter Care Teams Senior Care Assistant Relationship Specialty Start Date End Date Danielle Smith NP PCP - General 01/27/17 08/04/22 documented as of this encounter
--- OUTSIDE RECORDS SUMMARY | 2024-10-04 13:17 | XMS_ITS | Encounter Summary ---
Author Organization [facility] Address [address] [place] [address] Phone Care Team Providers Care Engineering Faculty Name Role Phone Danielle Smith NP Primary Care Provider Maritza oliveira Encounter Details Date Type Department Care Team (Late st Contact Info) Description 07/11/2016 Documentation [facility] [place] [facility] [place] [address] Family Medicine, Physician [facility] [place] [address] Social History Tobacco Use Types Packs/Day Years [...] on filedocumented in this encounter Care Teams Engineering Faculty Relationship Specialty Start Date End Date Danielle Smith NP PCP - General 01/27/17 08/04/22 documented as of this encounter
--- OUTSIDE RECORDS SUMMARY | 2024-10-04 13:17 | XMS_ITS | Encounter Summary ---
Author Organization [facility] Address [address] [place] [address] Phone Care Team Providers Care Internet Merchant Name Role Phone Danielle Smith VICE PRESIDENT PHARMACY Primary Care Provider Maritza oliveira Encounter Details Date Type Department Care Team (Late st Contact Info) Description 12/25/2014 Documentation [facility] [place] [address] [place] [address] Family Medicine, Physician [place] [address] Social History Tobacco Use Types Packs/Day Years [...] on filedocumented in this encounter Care Teams Internet Merchant Relationship Specialty Start Date End Date Danielle Smith NP PCP - General 01/27/17 08/04/22 documented as of this encounter
--- OUTSIDE RECORDS SUMMARY | 2024-10-04 13:17 | XMS_ITS | Encounter Summary ---
Author Organization [facility] Address [address] [place] [address] Phone Care Team Providers Care Cinder Pit Worker Name Role Phone Danielle Smith NP Primary Care Provider Maritza oliveira Encounter Details Date Type Department Care Team (Late st Contact Info) Description 08/10/2016 Documentation [facility] [place] Family Medicine [facility] [place] [address] Family Medicine, Physician [facility] [place] [address] Social History Tobacco Use Types Packs/Day Years [...] on filedocumented in this encounter Care Teams Cinder Pit Worker Relationship Specialty Start Date End Date Danielle Smith NP PCP - General 01/27/17 08/04/22 documented as of this encounter
--- OUTSIDE RECORDS SUMMARY | 2024-10-04 13:17 | XMS_ITS | Encounter Summary ---
Author Organization [facility] Address [address] [place] [address] Phone Care Team Providers Care Marine Engine Mechanic Name Role Phone Danielle Smith CUTTING MACHINE FIXER Primary Care Provider Maritza oliveira Encounter Details Date Type Department Care Team (Late st Contact Info) Description 10/20/2015 Documentation [facility] Family Medicine [address] [place] [address] Family Medicine, Physician [facility] [place] [address] Social History Tobacco Use Types Packs/Day Years [...] on filedocumented in this encounter Care Teams Marine Engine Mechanic Relationship Specialty Start Date End Date Danielle Smith NP PCP - General 01/27/17 08/04/22 documented as of this encounter
--- OUTSIDE RECORDS SUMMARY | 2024-10-04 13:17 | XMS_ITS | Encounter Summary ---
Author Organization [facility] Address [address] [place] [address] Phone Care Team Providers Care Controls Project Engineer Name Role Phone Danielle Smith HAND WOODWORKING SANDER Primary Care Provider Maritza oliveira Encounter Details Date Type Department Care Team (Late st Contact Info) Description 10/02/2013 Documentation [facility] [place] Family Medicine [address] [place] [address] Family Medicine, Physician [facility] [place] [address] Social History Tobacco Use Types Packs/Day Years [...] on filedocumented in this encounter Care Teams Controls Project Engineer Relationship Specialty Start Date End Date Danielle Smith NP PCP - General 01/27/17 08/04/22 documented as of this encounter
--- OUTSIDE RECORDS SUMMARY | 2024-10-04 13:17 | XMS_ITS | Clinical Summary ---
Author Organization [facility] Address [address] [place] [address] Phone Care Team Providers Care Machining Supervisor Name Role Phone Unavailable Primary Care Provider [...] complete this topic Procedures * Due to [place] InSpa law, this organization might not be sharing sensitive test results. Procedure Name Priority Date/Time Associated Diagnosis Comments CHLAMYDIA AND GONORRHEA, AMPLIFIED Routine 02/16/2016 2:09 PM EDT from Last 3 Months or Most Recently Relevant to Health Maintenance Results * Due to [place] In[employer] law, this organization might not be sharing sensitive test results. * Chlamydia and Gonorrhoea, Amplified (02/16/2016 2:09 PM EDT) URINE GC AMP PROBE NEGATIVE [facility] Comment: No Neisseria Gonorrhoeae RNA detected in this patient's sample (REFERENCE RANGE/NORMAL VALUE: NOT DETECTED) NOTE: This test uses study abroad advisor-mediated amplification method to detect rRNA from C.Trachomatis [...] without risk of sexual abuse. Consult the [facility] if needed. Contact phone number . Therapeutic failure or success cannot be determined with the Aptima Combo2 assay since nucleic acid may persist following appropriate antimicrobial therapy. The Centers for Disease Control and Prevention (CDC) recommends confirmatory retesting using culture or a different nucleic acid amplification test when positive results occur, if indicated. Testing performed or reported by [facility], a Service of [facility], [address] [place] [address] CLIA ??[id number] Werner Gilbert MD, PhD, Grease Worker URINE CHLAMYDIA AMP PROBE NEGATIVE [facility] Comment: No Chlamydia Trachomatis RNA detected in this patient's sample (REFERENCE RANGE/NORMAL VALUE: NOT DETECTED) 02/16/2016 2:09 PM EDT Narrative [facility] - 02/16/2016 2:09 PM EDT URINE CHLAMYDIA GC AMP PROBE us Danielle Smith NP LAB MICROBIOLOGY - GENERAL OR DERABLES Final Result [facility] [address] [place] [address], from Last 3 Months or Most Recently Relevant to Health Maintenance Insurance ELIZ BRYANT [id number] [facility] NON PCC
== END 2024-10-04 13:44 | disposition home or self-care (01) ==
LOC: HO.HOS 12:42
PROVIDERS: PCP Physician Assistant; Visit Provider Physician Assistant
DX: S93.402A Sprain of unspecified ligament of left ankle, initial encounter (principal)
CPT/HCPCS: 99213

== ENCOUNTER → 2024-10-04 12:41 | Outpatient (BNVA) | payer OTHER, SELFPAY | PROVIDERS: PCP Physician Assistant; Visit Provider Physician Assistant ==

== ENCOUNTER 2024-10-10 07:49 | Outpatient (RCR) | payer OTHER, SELFPAY ==
--- NOTE | 2024-09-12 14:43 | MHC.PT.EP ---
[facility] [place] Office [place] Office [place] Office [address] Randi Gonzalez [address] [phone] F: [phone] F: [phone] F: [phone] F: [phone] Physical Therapy Plan of Care Date of Evaluation: 09/11/24 Date of Surgery: Diagnosis: Sprain R ankle. Assessment: Pt is a 29 y/o male referred to PT for eval and treat of R ankle sprain after slip and fall on ice on 08/04/24 which is resulting in decreased tolerance for walking moderate distances, negotiating stairs and curbs, performing squatting and lifting objects from the ground as well as heavier HH cores and work tasks secondary to decreased R ankle ROM and strength, TTP of lateral malleolus area, ligament healing process, gait abnormality and pain. Pt is deemed an appropriate candidate to receive skilled PT services to address their physical impairments in order to improve their functional ability. Frequency and Duration: The patient will be seen 2 x / wk x 4 wks. Short Term Goals: initiate home program. Pt will report baseline pain < 4/10 with activity. Studio Assistant Goals: Descending stairs with reciprocal fashion. I with home program. Improve LEFI outcome by at least 9 points. improve ankle EV strength by at least 1/2 MMT grade; initial 4-/5. Treatment Plan: Modalities to reduce pain, spasms and effusion. Manual therapy to restore motion and function. Therapeutic exercise to improve strength and flexibility. Neuromuscular re-education for posture and balance. Therapeutic activities to return to functional activities of daily living. Electronically signed by: Adria Martin PT. Please sign and return to therapist. Thank you for your referral.
--- NOTE | 2024-10-10 16:35 | MHC.PT.DC ---
[facility] [place] Office [place] Office [place] Office [address] Randi Gonzalez [address] [phone] F: [phone] F: [phone] F: [phone] F: [phone] Physical Therapy Discharge Report Diagnosis: Sprain R ankle. Date of Surgery: Date of Evaluation: 09/11/24 Date of Discharge: 10/10/24 Treatments to Date: 8 Cancellations to Date: No Shows to Date: Discharge Status: Improved Function Independent with HEP Discharge Summary: Purnima has been an active participant in his therapy in the clinic with inconsistent home program compliance who reports he is overall improved of his condition though persists with some ankle weakness and mild pain and difficulty descending stairs; he is I with a basic home program and is using a brace for more active tasks in the community with Ed to wean from brace in the next 2 months as his tolerance improves. Though his AROM, MMT and TTP of lateral ankle have all improved Electronically signed by: Adria Martin PT. Please sign and return to therapist. Thank you for your referral.
== END 2024-10-10 16:34 | disposition home or self-care (01) ==
LOC: HO.PT 07:49
PROVIDERS: PCP Physician Assistant; Visit Provider Physician Assistant
DX: S93.401D Sprain of unspecified ligament of right ankle, subsequent encounter (principal)
CPT/HCPCS: 97110; 97112; 97140; 97161

== ENCOUNTER 2025-05-12 07:08 | Emergency (ER) | payer OTHER, SELFPAY ==
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
--- NOTE | ~2025-05-12 | US_ITS ---
EXAMINATION: US TRIPLEX LOWER EXTREMITY, RIGHT CLINICAL INFORMATION: Swelling COMPARISON: None available. TECHNIQUE: Color-flow triplex imaging with spectral analysis and compression Doppler were performed on the right lower extremity. FINDINGS: Respiratory variation, normal compression and augmented flow are noted throughout the right lower extremity. The visualized common femoral vein, superficial femoral vein, profunda femoral vein, popliteal vein and midcalf peroneal and posterior tibial venous segments show no evidence of deep venous thrombosis. There is no Jasmine's cyst. US/US venous duplex LE RT IMPRESSION: No evidence of deep venous thrombosis involving the right lower extremity. Electronically signed by: Jamilah Mcneal MD 05/12/2025 08:14 AM [facility]
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
[2025-05-12 07:14] VITALS: BP 141/80; PULSE 105; RESP 18; TEMP 36.8; O2SAT 97; BMI 40.8
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
[2025-05-12 07:37] LABS: MANUAL DIFF FLAG NO
[2025-05-12 07:42] LABS: Hematocrit 45.8 % (42.0-52.0); Hemoglobin 14.6 g/dl (14.0-18.0); Imm Gran Abs Auto 0.03 X10*3/uL (0.00-0.03); Imm Gran Pct Auto 0.3 % (0.0-0.4); Lymphocytes Absolute Auto 2.6 X10*3/uL (1.2-4.9); Mean Corpuscular HGB Conc 31.9 g/dl (31.0-36.0); Mean Corpuscular Hemoglobin 26.0 pg (27.0-33.0); Mean Corpuscular Volume 81.6 fL (80.0-98.0); NRBC Abs Auto 0.000 X10*3/uL (0.0-0.012); NRBC Pct Auto 0.0 /100WBC (0.0-0.2); Platelet Count 428 X10*3/uL (160-400); Red Blood Count 5.61 X10*6/uL (4.60-5.80); White Blood Count 11.3 X10*3/uL (4.8-10.8)
--- OUTSIDE RECORDS SUMMARY | 2025-05-12 07:43 | XMS_ITS | Encounter Summary ---
Author Organization [facility] Address [address] [place] [id number] Phone Care Team Providers Care Industrial Training Specialist Name Role Phone Danielle Smith NP Primary Care Provider Maritza oliveira Encounter Details Date Type Department Care Team (Late st Contact Info) Description 07/11/2016 Documentation [facility] [place] Family Medicine [facility] [address] Family Medicine, Physician [facility] [place] [address] Social History Tobacco Use Types Packs/Day Years [...] on filedocumented in this encounter Care Teams Industrial Training Specialist Relationship Specialty Start Date End Date Danielle Smith NP PCP - General 01/27/17 08/04/22 documented as of this encounter
--- OUTSIDE RECORDS SUMMARY | 2025-05-12 07:43 | XMS_ITS | Encounter Summary ---
Author Organization [facility] Address [address] [place] [id number] Phone Care Team Providers Care Auto Salvage Worker Name Role Phone Danielle Smith NP Primary Care Provider Maritza oliveira Encounter Details Date Type Department Care Team (Late st Contact Info) Description 07/11/2016 Documentation [facility] [place] Family Medicine [facility] [place] [address] Family Medicine, Physician [facility] [place] [address] Social History Tobacco Use Types Packs/Day Years [...] on filedocumented in this encounter Care Teams Auto Salvage Worker Relationship Specialty Start Date End Date Danielle Smith NP PCP - General 01/27/17 08/04/22 documented as of this encounter
--- OUTSIDE RECORDS SUMMARY | 2025-05-12 07:43 | XMS_ITS | Encounter Summary ---
Author Organization [facility] Address [address] [place] [id number] Phone Care Team Providers Care Net C Developer Name Role Phone Danielle Smith NP Primary Care Provider Maritza oliveira Encounter Details Date Type Department Care Team (Late st Contact Info) Description 03/23/[address] [facility] [address] [place] [address] Family Medicine, Physician [facility] [place] [address] Social History Tobacco Use Types Packs/Day Years [...] on filedocumented in this encounter Care Teams Net C Developer Relationship Specialty Start Date End Date Danielle Smith NP PCP - General 01/27/17 08/04/22 documented as of this encounter
--- OUTSIDE RECORDS SUMMARY | 2025-05-12 07:43 | XMS_ITS | Encounter Summary ---
Author Organization [facility] Address [address] [place] [address] Phone Care Team Providers Care Clinical Review Specialist Name Role Phone Danielle Smith CARTOGRAPHIC DRAFTER Primary Care Provider Maritza oliveira Encounter Details Date Type Department Care Team (Late st Contact Info) Description 08/21/2013 Documentation [facility] [place] Family Medicine [address] [place] [address] Family Medicine, Physician [facility] [place] [address] Social History Tobacco Use Types Packs/Day Years [...] on filedocumented in this encounter Care Teams Clinical Review Specialist Relationship Specialty Start Date End Date Danielle Smith NP PCP - General 01/27/17 08/04/22 documented as of this encounter
--- OUTSIDE RECORDS SUMMARY | 2025-05-12 07:43 | XMS_ITS | Encounter Summary ---
Author Organization [facility] Address [address] [place] [address] Phone Care Team Providers Care Bottom Buffer Name Role Phone Danielle Smith NP Primary Care Provider Maritza oliveira Encounter Details Date Type Department Care Team (Late st Contact Info) Description 07/11/2016 Documentation [facility] [place] [facility] [place] [address] Family Medicine, Physician [facility] [place] [address] Social History Tobacco Use Types Packs/Day Years [...] on filedocumented in this encounter Care Teams Bottom Buffer Relationship Specialty Start Date End Date Danielle Smith NP PCP - General 01/27/17 08/04/22 documented as of this encounter
--- OUTSIDE RECORDS SUMMARY | 2025-05-12 07:43 | XMS_ITS | Encounter Summary ---
Author Organization [facility] Address [address] [place] [address] Phone Care Team Providers Care Senior Validation Engineer Name Role Phone Danielle Smith NURSE INFORMATICIST Primary Care Provider Maritza oliveira Encounter Details Date Type Department Care Team (Late st Contact Info) Description 10/20/2015 Documentation [facility] [place] [address] [place] [address] Family Medicine, Physician [facility] [place] [address] Social History Tobacco Use Types Packs/Day Years [...] filedocumented in this encounter Care Teams Senior Validation Engineer Relationship Specialty Start Date End Date Danielle Smith NP PCP - General 01/27/17 08/04/22 documented as of this encounter
--- OUTSIDE RECORDS SUMMARY | 2025-05-12 07:43 | XMS_ITS | Encounter Summary ---
Author Organization [facility] Address [address] [place] [address] Phone Care Team Providers Care Police Academy Program Coordinator Name Role Phone Danielle Smith NP Primary Care Provider Maritza oliveira Encounter Details Date Type Department Care Team (Late st Contact Info) Description 09/26/2016 Documentation [facility] [place] [facility] [place] [address] Family Medicine, Physician [facility] [place] [address] Social History Tobacco Use Types Packs/Day Years [...] on filedocumented in this encounter Care Teams [employer] Program Coordinator Relationship Specialty Start Date End Date Danielle Smith NP PCP - General 01/27/17 08/04/22 documented as of this encounter
--- OUTSIDE RECORDS SUMMARY | 2025-05-12 07:43 | XMS_ITS | Encounter Summary ---
Author Organization [facility] Address [address] [place] [address] Phone Care Team Providers Care Lead Furnace Operator Name Role Phone Danielle Smith NP Primary Care Provider Maritza oliveira Encounter Details Date Type Department Care Team (Late st Contact Info) Description 08/10/2016 Documentation [facility] [place] [facility] [place] [address] Family Medicine, Physician [facility] [place] [address] Social History Tobacco Use Types Packs/Day Years [...] on filedocumented in this encounter Care Teams Lead Furnace Operator Relationship Specialty Start Date End Date Danielle Smith NP PCP - General 01/27/17 08/04/22 documented as of this encounter
--- OUTSIDE RECORDS SUMMARY | 2025-05-12 07:43 | XMS_ITS | Encounter Summary ---
Author Organization [facility] Address [address] [place] [address] Phone Care Team Providers Care Snack Bar Attendant Name Role Phone Danielle Smith PHOTO INTERN Primary Care Provider Maritza oliveira Encounter Details Date Type Department Care Team (Late st Contact Info) Description 07/14/2014 Documentation [facility] [place] Family Medicine [address] [place] [address] Family Medicine, Physician [facility] [place] [address] Social History Tobacco Use Types Packs/Day Years [...] on filedocumented in this encounter Care Teams Snack Bar Attendant Relationship Specialty Start Date End Date Danielle Smith NP PCP - General 01/27/17 08/04/22 documented as of this encounter
--- OUTSIDE RECORDS SUMMARY | 2025-05-12 07:43 | XMS_ITS | Encounter Summary ---
Author Organization [facility] Address [address] [place] [address] Phone Care Team Providers Care Airport Operations Manager Name Role Phone Danielle Smith NP Primary Care Provider Maritza oliveira Encounter Details Date Type Department Care Team (Late st Contact Info) Description 04/04/2016 Documentation [facility] [place] [address] [place] [address] Family Medicine, Physician [facility] [place] [address] Social History Tobacco Use Types Packs/Day Years [...] on filedocumented in this encounter Care Teams Airport Operations Manager Relationship Specialty Start Date End Date Danielle Smith NP PCP - General 01/27/17 08/04/22 documented as of this encounter
--- OUTSIDE RECORDS SUMMARY | 2025-05-12 07:43 | XMS_ITS | Encounter Summary ---
Author Organization [facility] Address [address] [place] [address] Phone Care Team Providers Care Construction Secretary Name Role Phone Danielle Smith NP Primary Care Provider Maritza oliveira Encounter Details Date Type Department Care Team (Late st Contact Info) Description 09/19/2016 Documentation [facility] [place] [facility] [place] [address] Family Medicine, Physician [facility] [place] [address] Social History Tobacco Use Types Packs/Day Years [...] on filedocumented in this encounter Care Teams Construction Secretary Relationship Specialty Start Date End Date Danielle Smith NP PCP - General 01/27/17 08/04/22 documented as of this encounter
--- OUTSIDE RECORDS SUMMARY | 2025-05-12 07:43 | XMS_ITS | Encounter Summary ---
Author Organization [facility] Address [address] [place] [address] Phone Care Team Providers Care Adjunct Phlebotomy Instructor Name Role Phone Danielle Smith ENERGY ANALYST Primary Care Provider Maritza oliveira Encounter Details Date Type Department Care Team (Late st Contact Info) Description 12/16/2013 Documentation [facility] [place] Medicine [address] [place] [address] Family Medicine, Physician [facility] [place] [address] Social History Tobacco Use Types Packs/Day Years [...] on filedocumented in this encounter Care Teams Adjunct Phlebotomy Instructor Relationship Specialty Start Date End Date Danielle Smith NP PCP - General 01/27/17 08/04/22 documented as of this encounter
--- OUTSIDE RECORDS SUMMARY | 2025-05-12 07:43 | XMS_ITS | Encounter Summary ---
Author Organization [facility] Address [address] [place] [phone] Phone Care Team Providers Care Corporate Relations Director Name Role Phone Danielle Smith NP Primary Care Provider Maritaz oliveira Encounter Details Date Type Department Care Team (Late st Contact Info) Description 02/02/2017 Conversion Encounter [facility] - [address] [address] Social History Tobacco Use Types Packs/Day Years [...] on filedocumented in this encounter Care Teams Corporate Relations Director Relationship Specialty Start Date End Date Danielle Smith NP PCP - General 01/27/17 08/04/22 documented as of this encounter
--- OUTSIDE RECORDS SUMMARY | 2025-05-12 07:43 | XMS_ITS | Encounter Summary ---
Author Organization [facility] Address [address] [place] [address] Phone Care Team Providers Care Merit System Director Name Role Phone Danielle Smith POWDER PRESS OPERATOR Primary Care Provider Maritza oliveira Encounter Details Date Type Department Care Team (Late st Contact Info) Description 12/25/2014 Documentation [facility] [place] Family Medicine [address] [place] [address] Family Medicine, Physician [facility] [place] [address] Social History Tobacco Use Types Packs/Day Years [...] on filedocumented in this encounter Care Teams Merit System Director Relationship Specialty Start Date End Date Danielle Smith NP PCP - General 01/27/17 08/04/22 documented as of this encounter
--- OUTSIDE RECORDS SUMMARY | 2025-05-12 07:43 | XMS_ITS | Encounter Summary ---
Author Organization [facility] Address [address] [place] [address] Phone Care Team Providers Care Senior Scrum Master Name Role Phone Danielle Smith DIRECTOR OF STRATEGIC PROGRAMS Primary Care Provider Maritza oliveira Encounter Details Date Type Department Care Team (Late st Contact Info) Description 10/02/2013 Documentation [facility] [place] Family Medicine [address] [place] [address] Family Medicine, Physician [facility] [place] [address] Social History Tobacco Use Types Packs/Day Years [...] filedocumented in this encounter Care Teams Senior Scrum Master Relationship Specialty Start Date End Date Danielle Smith NP PCP - General 01/27/17 08/04/22 documented as of this encounter
--- OUTSIDE RECORDS SUMMARY | 2025-05-12 07:44 | XMS_ITS | Clinical Summary ---
Author Organization [facility] Address [address] [place] [address] Phone Care Team Providers Care Wooden Fence Erector Name Role Phone Unavailable Primary Care Provider [...] 81 09/11/2017 10:54 AM EDT Temperature 36.8 C (98.2 F) 09/11/2017 10:54 AM EDT Respiratory Rate - - Oxygen Saturation - [...] 10/07/1998, Additional history exists Influenza Vaccines (#1) 2025 04/10/20 17, 02/15/2016, 04/21/2015, Additional history exists COVID-19 Vaccine ( season) 2025 Hepatitis B Vaccines Completed 1997, 1997, 1997 [...] complete this topic Procedures * Due to [place] Exec[employer] law, this organization might not be sharing sensitive test results. Procedure Name Priority Date/Time Associated Diagnosis Comments CHLAMYDIA AND GONORRHEA, AMPLIFIED Routine 02/16/2016 2:09 PM EDT from Last 3 Months or Most Recently Relevant to Health Maintenance Results * Due to [place] Exec[employer] law, this organization might not be sharing sensitive test results. * Chlamydia and Gonorrhoea, Amplified (02/16/2016 2:09 PM EDT) URINE GC AMP PROBE NEGATIVE [facility] Comment: No Neisseria Gonorrhoeae RNA detected in this patient's sample (REFERENCE RANGE/NORMAL VALUE: NOT DETECTED) NOTE: This test uses agronomy manager-mediated amplification method to detect rRNA from [...] without risk of sexual abuse. Consult the [facility] if needed. Contact phone number . Therapeutic failure or success cannot be determined with the Aptima Combo2 assay since nucleic acid may persist following appropriate antimicrobial therapy. The Centers for Disease Control and Prevention (CDC) recommends confirmatory retesting using culture or a different nucleic acid amplification test when positive results occur, if indicated. Testing performed or reported by [facility], a Service of [facility], [address] [place] [address] CLIA [id number] Werner Gilbert MD, PhD, Principal Architectural Firm URINE CHLAMYDIA AMP PROBE NEGATIVE [facility] Comment: No Chlamydia Trachomatis RNA detected in this patient's sample (REFERENCE RANGE/NORMAL VALUE: NOT DETECTED) 02/16/2016 2:09 PM EDT Narrative [facility] - 02/16/2016 2:09 PM EDT URINE CHLAMYDIA GC AMP PROBE us Danielle Smith NP LAB MICROBIOLOGY - GENERAL OR DERABLES Final Result [facility] [address] [place] [phone], from Last 3 Months or Most Recently Relevant to Health Maintenance Insurance ELIZ BRYANT [id number] [facility] NON PCC
--- OUTSIDE RECORDS SUMMARY | 2025-05-12 07:44 | XMS_ITS | Encounter Summary ---
Author Organization [facility] Address [address] [place] [address] Phone Care Team Providers Care Vehicle Detailer Name Role Phone Danielle Smith MILLED LUMBER GRADER Primary Care Provider Maritza oliveira Encounter Details Date Type Department Care Team (Late st Contact Info) Description 07/07/2015 Documentation [facility] [place] [address] [place] [address] Family Medicine, Physician [facility] [place] [address] Social History Tobacco Use Types Packs/Day Years [...] on filedocumented in this encounter Care Teams Vehicle Detailer Relationship Specialty Start Date End Date Danielle Smith NP PCP - General 01/27/17 08/04/22 documented as of this encounter
[2025-05-12 07:53] LABS: Alanine Aminotransferase 18 U/L (0-40); Albumin Level 4.8 g/dL (3.5-5.0); Alkaline Phosphatase 89 U/L (39-117); Anion Gap 14 (12-20); Aspartate Amino Transferase 18 U/L (5-37); Blood Urea Nitrogen 9 mg/dL (9-16); Calcium 9.9 mg/dL (8.4-10.2); Carbon Dioxide 24 mmol/L (22-29); Chloride 108 mmol/L (96-108); Creatinine Clr Calc Pharmacy 186.1; Estimated Glomerular Filt Rate > 60; Potassium 3.8 mmol/L (3.3-5.1); Sodium 142 mmol/L (135-145); Total Protein 8.1 g/dL (6.5-8.0)
[2025-05-12] MEDS: iohexoL 350 MG/ML 100 ML INFUS..BTL IV (08:20)
[2025-05-12 10:42] VITALS: BP 140/73; PULSE 83; RESP 16; TEMP 36.6; O2SAT 98
[2025-05-12 10:44] VITALS: BP 140/73; PULSE 83; RESP 16; TEMP 36.6; O2SAT 98
== END 2025-05-12 10:47 | disposition home or self-care (01) ==
PROVIDERS: Emergency Provider Emergency Medicine; PCP Physician Assistant
DX: S30.11XA Contusion of abdominal wall, initial encounter (principal); S20.212A Contusion of left front wall of thorax, initial encounter; S80.812A Abrasion, left lower leg, initial encounter; V49.59XA Passenger injured in collision with other motor vehicles in traffic accident, initial encounter; Y93.9 Activity, unspecified; Y92.9 Unspecified place or not applicable; M79.605 Pain in left leg; R10.9 Unspecified abdominal pain; R11.0 Nausea
CPT/HCPCS: 36415; 70450; 71260; 72125; 73590; 74177; 80053; 85025; 93971; 96361; 96374; 99284; 99285; J2405; Q9967

== ENCOUNTER → 2025-05-12 07:26 | Outpatient (BNV) | payer OTHER, SELFPAY | PROVIDERS: Emergency Provider Emergency Medicine; PCP Physician Assistant; Visit Provider Radiology Diagnostic Ultrasound | DX: S39.91XA Unspecified injury of abdomen, initial encounter (principal); V89.2XXA Person injured in unspecified motor-vehicle accident, traffic, initial encounter; Z04.3 Encounter for examination and observation following other accident; R92.8 Other abnormal and inconclusive findings on diagnostic imaging of breast; R22.41 Localized swelling, mass and lump, right lower limb | CPT/HCPCS: 70450; 71260; 72125; 73590; 74177; 93971 ==

== ENCOUNTER 2025-05-21 14:44 | Outpatient (AMB) | payer OTHER, SELFPAY ==
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
[2025-05-21 15:18] VITALS: BP 110/70; PULSE 99; TEMP 36.4; O2SAT 98; BMI 40.8
--- OUTSIDE RECORDS SUMMARY | 2025-05-21 17:37 | XMS_ITS | Encounter Summary ---
Author Organization [facility] Address [address] [place] [address] Phone Care Team Providers Care Manager Food Safety Name Role Phone Danielle Smith TEMPLATE MAKER Primary Care Provider Maritza oliveira Encounter Details Date Type Department Care Team (Late st Contact Info) Description 07/07/2015 Documentation [facility] [place] Family Medicine [address] [place] [address] Family Medicine, Physician [facility] [place] [address] Social History Tobacco Use Types Packs/Day Years [...] filedocumented in this encounter Care Teams Manager Food Safety Relationship Specialty Start Date End Date Danielle Smith NP PCP - General 01/27/17 08/04/22 documented as of this encounter
--- OUTSIDE RECORDS SUMMARY | 2025-05-21 17:37 | XMS_ITS | Encounter Summary ---
Author Organization [facility] Address [address] [place] [address] Phone Care Team Providers Care Mold Machine Operator Name Role Phone Danielle Smith NP Primary Care Provider Maritza oliveira Encounter Details Date Type Department Care Team (Late st Contact Info) Description 07/11/2016 Documentation [facility] [place] Family Medicine [facility] [place] [address] Family Medicine, Physician [facility] [place] [address] Social History Tobacco Use Types Packs/Day Years [...] on filedocumented in this encounter Care Teams Mold Machine Operator Relationship Specialty Start Date End Date Danielle Smith NP PCP - General 01/27/17 08/04/22 documented as of this encounter
--- OUTSIDE RECORDS SUMMARY | 2025-05-21 17:37 | XMS_ITS | Encounter Summary ---
Author Organization [facility] Address [address] [place] [address] Phone Care Team Providers Care Architectural Inspector Name Role Phone Danielle Smith NP Primary Care Provider Maritza oliveira Encounter Details Date Type Department Care Team (Late st Contact Info) Description 07/11/2016 Documentation [facility] [place] Medicine [facility] [place] [address] Family Medicine, Physician [facility] [place] [address] Social History Tobacco Use Types Packs/Day Years [...] on filedocumented in this encounter Care Teams Architectural Inspector Relationship Specialty Start Date End Date Danielle Smith NP PCP - General 01/27/17 08/04/22 documented as of this encounter
--- OUTSIDE RECORDS SUMMARY | 2025-05-21 17:37 | XMS_ITS | Encounter Summary ---
Author Organization [facility] Address [address] [place] [address] Phone Care Team Providers Care Pipe Smoking Machine Operator Name Role Phone Danielle Smith POST HOLE DIGGING MACHINE OPERATOR Primary Care Provider Maritza oliveira Encounter Details Date Type Department Care Team (Late st Contact Info) Description 12/16/2013 Documentation [facility] [place] Family Medicine [address] [place] [address] Family Medicine, Physician [facility] [place] [address] Social History Tobacco Use Types Packs/Day Years [...] on filedocumented in this encounter Care Teams Pipe Smoking Machine Operator Relationship Specialty Start Date End Date Danielle Smith NP PCP - General 01/27/17 08/04/22 documented as of this encounter
--- OUTSIDE RECORDS SUMMARY | 2025-05-21 17:37 | XMS_ITS | Encounter Summary ---
Author Organization [facility] Address [address] [place] [address] Phone Care Team Providers Care Candle Molder Name Role Phone Danielle Smith NP Primary Care Provider Maritza oliveira Encounter Details Date Type Department Care Team (Late st Contact Info) Description 02/02/2017 Conversion Encounter [facility] [address] [address] Social History Tobacco Use Types Packs/Day Years [...] on filedocumented in this encounter Care Teams Candle Molder Relationship Specialty Start Date End Date Danielle Smith NP PCP - General 01/27/17 08/04/22 documented as of this encounter
--- OUTSIDE RECORDS SUMMARY | 2025-05-21 17:37 | XMS_ITS | Encounter Summary ---
Author Organization [facility] Address [address] [place] [address] Phone Care Team Providers Care Packerhead Machine Operator Name Role Phone Danielle Smith NP Primary Care Provider Maritza oliveira Encounter Details Date Type Department Care Team (Late st Contact Info) Description 04/04/2016 Documentation [facility] [place] Family Medicine [address] [place] [address] Family Medicine, Physician [facility] [place] [address] Social History Tobacco Use Types Packs/Day Years [...] on filedocumented in this encounter Care Teams Packerhead Machine Operator Relationship Specialty Start Date End Date Danielle Smith NP PCP - General 01/27/17 08/04/22 documented as of this encounter
--- OUTSIDE RECORDS SUMMARY | 2025-05-21 17:37 | XMS_ITS | Encounter Summary ---
Author Organization [facility] Address [address] [place] [address] Phone Care Team Providers Care Flight Dispatcher Name Role Phone Danielle Smith NP Primary Care Provider Maritza oliveira Encounter Details Date Type Department Care Team (Late st Contact Info) Description 07/11/2016 Documentation [facility] [place] Family Medicine [facility] [place] [address] Family Medicine, Physician [facility] [place] [address] Social History Tobacco Use Types Packs/Day Years [...] on filedocumented in this encounter Care Teams Flight Dispatcher Relationship Specialty Start Date End Date Danielle Smith NP PCP - General 01/27/17 08/04/22 documented as of this encounter
--- OUTSIDE RECORDS SUMMARY | 2025-05-21 17:37 | XMS_ITS | Encounter Summary ---
Author Organization [facility] Address [address] [place] [phone] Phone Care Team Providers Care Linux Devops Engineer Name Role Phone Danielle Smith MEDICAL DOSIMETRIST Primary Care Provider Maritza oliveira Encounter Details Date Type Department Care Team (Late st Contact Info) Description 10/20/2015 Documentation [facility] Family Medicine [address] [place] [address] Family Medicine, Physician [facility] [place] [address] Social History Tobacco Use Types Packs/Day Years [...] on filedocumented in this encounter Care Teams Linux Devops Engineer Relationship Specialty Start Date End Date Danielle Smith NP PCP - General 01/27/17 08/04/22 documented as of this encounter
--- OUTSIDE RECORDS SUMMARY | 2025-05-21 17:37 | XMS_ITS | Encounter Summary ---
Author Organization [facility] Address [address] [place] [phone] Phone Care Team Providers Care Document Reviewer Name Role Phone Danielle Smith NP Primary Care Provider Maritza oliveira Encounter Details Date Type Department Care Team (Late st Contact Info) Description 08/10/2016 Documentation [facility] [place] Family Medicine [facility] [place] [address] Family Medicine, Physician [facility] [place] [address] Social History Tobacco Use Types Packs/Day Years [...] on filedocumented in this encounter Care Teams Document Reviewer Relationship Specialty Start Date End Date Danielle Smith NP PCP - General 01/27/17 08/04/22 documented as of this encounter
--- OUTSIDE RECORDS SUMMARY | 2025-05-21 17:37 | XMS_ITS | Encounter Summary ---
Author Organization [facility] Address [address] [place] [address] Phone Care Team Providers Care Supervisor Of Communications Name Role Phone Danielle Smith INDUSTRIAL HYGIENE TECHNICIAN Primary Care Provider Maritza oliveira Encounter Details Date Type Department Care Team (Late st Contact Info) Description 10/02/2013 Documentation [facility] [place] Family Medicine [address] [place] [address] Family Medicine, Physician [facility] [place] [address] Social History Tobacco Use Types Packs/Day Years [...] filedocumented in this encounter Care Teams Supervisor Of Communications Relationship Specialty Start Date End Date Danielle Smith NP PCP - General 01/27/17 08/04/22 documented as of this encounter
--- OUTSIDE RECORDS SUMMARY | 2025-05-21 17:37 | XMS_ITS | Encounter Summary ---
Author Organization [facility] Address [address] [place] [address] Phone Care Team Providers Care Process Controls Technician Name Role Phone Danielle Smith MEDIA DEVELOPER Primary Care Provider Maritza oliveira Encounter Details Date Type Department Care Team (Late st Contact Info) Description 07/14/2014 Documentation [facility] Family Medicine [address] [place] [address] Family Medicine, Physician [facility] [place] [address] Social History Tobacco Use Types Packs/Day Years [...] on filedocumented in this encounter Care Teams Process Controls Technician Relationship Specialty Start Date End Date Danielle Smith NP PCP - General 01/27/17 08/04/22 documented as of this encounter
--- OUTSIDE RECORDS SUMMARY | 2025-05-21 17:37 | XMS_ITS | Encounter Summary ---
Author Organization [facility] Address [address] [place] [phone] Phone Care Team Providers Care Logistics Program Manager Name Role Phone Danielle Smith NP Primary Care Provider Maritza oliveira Encounter Details Date Type Department Care Team (Late st Contact Info) Description 09/19/2016 Documentation [facility] [place] Family Medicine [facility] [place] [address] Family Medicine, Physician [facility] [place] [address] Social History Tobacco Use Types Packs/Day Years [...] on filedocumented in this encounter Care Teams Logistics Program Manager Relationship Specialty Start Date End Date Danielle Smith NP PCP - General 01/27/17 08/04/22 documented as of this encounter
--- OUTSIDE RECORDS SUMMARY | 2025-05-21 17:37 | XMS_ITS | Encounter Summary ---
Author Organization [facility] Address [address] [place] [phone] Phone Care Team Providers Care Clinical Auditor Name Role Phone Danielle Smith NP Primary Care Provider Maritza oliveira Encounter Details Date Type Department Care Team (Late st Contact Info) Description 09/26/2016 Documentation [facility] [place] Family Medicine [facility] [place] [address] Family Medicine, Physician [facility] [place] [address] Social History Tobacco Use Types Packs/Day Years [...] filedocumented in this encounter Care Teams Clinical Auditor Relationship Specialty Start Date End Date Danielle Smith NP PCP - General 01/27/17 08/04/22 documented as of this encounter
--- OUTSIDE RECORDS SUMMARY | 2025-05-21 17:37 | XMS_ITS | Encounter Summary ---
Author Organization [facility] Address [address] [place] [phone] Phone Care Team Providers Care Custodian Name Role Phone Danielle Smith ASSISTANT SCIENTIST Primary Care Provider Maritza oliveira Encounter Details Date Type Department Care Team (Late st Contact Info) Description 12/25/2014 Documentation [facility] [place] Family Medicine [address] [place] [address] Family Medicine, Physician [facility] [place] [address] Social History Tobacco Use Types Packs/Day Years [...] on filedocumented in this encounter Care Teams Custodian Relationship Specialty Start Date End Date Danielle Smith NP PCP - General 01/27/17 08/04/22 documented as of this encounter
--- OUTSIDE RECORDS SUMMARY | 2025-05-21 17:37 | XMS_ITS | Encounter Summary ---
Author Organization [facility] Address [address] [place] [address] Phone Care Team Providers Care Paving Supervisor Name Role Phone Danielle Smith NP Primary Care Provider Maritza oliveira Encounter Details Date Type Department Care Team (Late st Contact Info) Description 03/23/2016 Documentation [facility] [place] Family Medicine [address] [place] [address] Family Medicine, Physician [place] [address] Social History Tobacco Use Types Packs/Day Years [...] on filedocumented in this encounter Care Teams Paving Supervisor Relationship Specialty Start Date End Date Danielle Smith NP PCP - General 01/27/17 08/04/22 documented as of this encounter
--- OUTSIDE RECORDS SUMMARY | 2025-05-21 17:37 | XMS_ITS | Clinical Summary ---
Author Organization [facility] Address [address] [place] [phone] Phone Care Team Providers Care Stage Settings Painter Name Role Phone Unavailable Primary Care Provider [...] complete this topic Procedures * Due to [place] [employer] law, this organization might not be sharing sensitive test results. Procedure Name Priority Date/Time Associated Diagnosis Comments CHLAMYDIA AND GONORRHEA, AMPLIFIED Routine 02/16/2016 2:09 PM EDT from Last 3 Months or Most Recently Relevant to Health Maintenance Results * Due to [place] [employer] law, this organization might not be sharing sensitive test results. * Chlamydia and Gonorrhoea, Amplified (02/16/2016 2:09 PM EDT) URINE GC AMP PROBE NEGATIVE [facility] Comment: No Neisseria Gonorrhoeae RNA detected in this patient's sample (REFERENCE RANGE/NORMAL VALUE: NOT DETECTED) NOTE: This test uses stone driller-mediated amplification method to detect rRNA from C.Trachomatis [...] without risk of sexual abuse. Consult the [facility] if needed. Contact phone number . Therapeutic failure or success cannot be determined with the Aptima Combo2 assay since nucleic acid may persist following appropriate antimicrobial therapy. The Centers for Disease Control and Prevention (CDC) recommends confirmatory retesting using culture or a different nucleic acid amplification test when positive results occur, if indicated. Testing performed or reported by [facility], a Service of [facility], [address] [place] [address] CLIA [id number] Werner Gilbert MD, PhD, Inventory Representative URINE CHLAMYDIA AMP PROBE NEGATIVE [facility] Comment: No Chlamydia Trachomatis RNA detected in this patient's sample (REFERENCE RANGE/NORMAL VALUE: NOT DETECTED) 02/16/2016 2:09 PM EDT Narrative [facility] - 02/16/2016 2:09 PM EDT URINE CHLAMYDIA GC AMP PROBE us Danielle Smith NP LAB MICROBIOLOGY - GENERAL OR DERABLES Final Result [facility] [address] [place] [id number], from Last 3 Months or Most Recently Relevant to Health Maintenance Insurance ELIZ BRYANT [id number] [facility] NON PCC
--- OUTSIDE RECORDS SUMMARY | 2025-05-21 17:37 | XMS_ITS | Encounter Summary ---
Author Organization [facility] Address [address] [place] [address] Phone Care Team Providers Care Crew Manager Name Role Phone Danielle Smith THEATRICAL RIGGER Primary Care Provider Maritza oliveira Encounter Details Date Type Department Care Team (Late st Contact Info) Description 08/21/2013 Documentation [facility] [facility] [place] [address] [place] [address] Family Medicine, Physician [facility] [place] [address] Social History Tobacco Use Types Packs/Day Years [...] on filedocumented in this encounter Care Teams Crew Manager Relationship Specialty Start Date End Date Danielle Smith NP PCP - General 01/27/17 08/04/22 documented as of this encounter
== END 2025-05-21 16:05 | disposition home or self-care (01) ==
LOC: HO.HMCH 14:44
PROVIDERS: PCP Internal Medicine; Visit Provider Internal Medicine
DX: S80.811A Abrasion, right lower leg, initial encounter (principal); R03.0 Elevated blood-pressure reading, without diagnosis of hypertension; V89.2XXA Person injured in unspecified motor-vehicle accident, traffic, initial encounter; Z04.3 Encounter for examination and observation following other accident

== ENCOUNTER 2025-05-28 10:21 | Outpatient (AMB) | payer OTHER, SELFPAY ==
[2025-05-28 10:42] VITALS: BP 122/80; PULSE 104; O2SAT 99; BMI 40.8
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
== END 2025-05-28 11:09 | disposition home or self-care (01) ==
LOC: HO.HMCH 10:21
PROVIDERS: PCP Internal Medicine; Visit Provider Internal Medicine
DX: L03.115 Cellulitis of right lower limb (principal)

== ENCOUNTER 2025-05-28 11:19 | Emergency (ER) | payer OTHER, SELFPAY ==
--- NOTE | ~2025-05-28 | XR_ITS ---
EXAMINATION: XR TIBIA FIBULA 2 VIEWS RIGHT HISTORY: pain, concern for osteo COMPARISON: Comparison is made with the prior examination dated 05/12/2025. FINDINGS: AP and lateral views of the right tibia and fibula are submitted. Osseous mineralization is normal. There is no fracture or dislocation. The visualized knee and ankle joint spaces are preserved. There is mild pretibial soft tissue swelling. XR/XR tibia fibula RT 2V IMPRESSION: Mild pretibial soft tissue swelling. No osseous abnormality is identified. Electronically signed by: Salomon Ortiz MD 05/28/2025 02:08 PM EST
--- NOTE | ~2025-05-28 | US_ITS ---
CLINICAL HISTORY: ? abscess prox lower leg Targeted soft tissue ultrasound Comparison: US - US VENOUS DUPLEX LE RT - 05/28/25 16:57 EST US/SR - US VENOUS DUPLEX LE RT - 05/12/25 07:55 EST Findings: Grayscale and color Doppler images were obtained of the medial right calf at the proximal aspect with a high-frequency linear transducer. There is a complex fluid collection measuring 4.6 cm in length. Impression: Abscess versus resolving hematoma in the medial aspect of the right proximal calf. This document has been electronically signed by: Terri Arreola MD on 05/28/2025 18:03:50
--- NOTE | ~2025-05-28 | US_ITS ---
CLINICAL HISTORY: Right leg pain and swelling Right lower extremity venous duplex ultrasound Comparison: 05/12/25 Findings: The visualized deep veins are fully compressible with normal flow. No popliteal cyst. Impression: No deep vein thrombosis. This document has been electronically signed by: Terri Arreola MD on 05/28/2025 18:04:52
[2025-05-28 11:49] VITALS: BP 157/83; PULSE 100; RESP 20; TEMP 36.6; O2SAT 98; BMI 40.2
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
[2025-05-28 12:14] LABS: Hematocrit 41.7 % (42.0-52.0); Hemoglobin 13.3 g/dl (14.0-18.0); Imm Gran Abs Auto 0.02 X10*3/uL (0.00-0.03); Imm Gran Pct Auto 0.2 % (0.0-0.4); Lymphocytes Absolute Auto 1.9 X10*3/uL (1.2-4.9); MANUAL DIFF FLAG NO; Mean Corpuscular HGB Conc 31.9 g/dl (31.0-36.0); Mean Corpuscular Hemoglobin 25.9 pg (27.0-33.0); Mean Corpuscular Volume 81.1 fL (80.0-98.0); NRBC Abs Auto 0.000 X10*3/uL (0.0-0.012); NRBC Pct Auto 0.0 /100WBC (0.0-0.2); Platelet Count 425 X10*3/uL (160-400); Red Blood Count 5.14 X10*6/uL (4.60-5.80); White Blood Count 8.8 X10*3/uL (4.8-10.8)
[2025-05-28 12:31] LABS: Alanine Aminotransferase 12 U/L (0-40); Albumin Level 4.6 g/dL (3.5-5.0); Alkaline Phosphatase 83 U/L (39-117); Anion Gap 10 (12-20); Aspartate Amino Transferase 14 U/L (5-37); Blood Urea Nitrogen 10 mg/dL (9-16); Calcium 9.4 mg/dL (8.4-10.2); Carbon Dioxide 26 mmol/L (22-29); Chloride 109 mmol/L (96-108); Creatinine Clr Calc Pharmacy 190.3; Estimated Glomerular Filt Rate > 60; Potassium 4.0 mmol/L (3.3-5.1); Sodium 141 mmol/L (135-145); Total Protein 7.7 g/dL (6.5-8.0)
[2025-05-28] MEDS: Lidocaine HCl 1 % MPF 5 ML VIAL INFILTRATI (18:30)
--- NOTE | 2025-05-28 18:36 | PC.NURSE ---
Dr. Doll at bedside, aspirated bloody fluid while administering Lidocaine. Specimen to be sent to lab for analysis.
[2025-05-28 19:10] VITALS: BP 157/83; PULSE 100; RESP 20; TEMP 36.6; O2SAT 98
--- OUTSIDE RECORDS SUMMARY | 2025-05-28 23:40 | XMS_ITS | Encounter Summary ---
Author Organization [facility] Address [address] [place] [address] Phone Care Team Providers Care Bingo Floater Name Role Phone Danielle Smith NP Primary Care Provider Maritza oliveira Encounter Details Date Type Department Care Team (Late st Contact Info) Description 07/11/2016 Documentation [facility] [place] [facility] [place] [address] Family Medicine, Physician [facility] [place] [address] Social History Tobacco Use Types Packs/Day Years [...] on filedocumented in this encounter Care Teams Bingo Floater Relationship Specialty Start Date End Date Danielle Smith NP PCP - General 01/27/17 08/04/22 documented as of this encounter
--- OUTSIDE RECORDS SUMMARY | 2025-05-28 23:40 | XMS_ITS | Encounter Summary ---
Author Organization [facility] Address [address] [place] [address] Phone Care Team Providers Care Cover Cutter Machine Name Role Phone Danielle Smith NP Primary Care Provider Maritza oliveira Encounter Details Date Type Department Care Team (Late st Contact Info) Description 09/26/2016 Documentation [facility] [place] Medicine [facility] [place] [address] Family Medicine, Physician [facility] [place] [address] Social History Tobacco Use Types Packs/Day Years [...] on filedocumented in this encounter Care Teams Cover Cutter Machine Relationship Specialty Start Date End Date Danielle Smith NP PCP - General 01/27/17 08/04/22 documented as of this encounter
--- OUTSIDE RECORDS SUMMARY | 2025-05-28 23:40 | XMS_ITS | Encounter Summary ---
Author Organization [facility] Address [address] [place] [address] Phone Care Team Providers Care House Mover Helper Name Role Phone Danielle Smith NP Primary Care Provider Maritza oliveira Encounter Details Date Type Department Care Team (Late st Contact Info) Description 02/02/2017 Conversion Encounter [facility] - [address] [address] Social History Tobacco Use Types Packs/Day Years [...] on filedocumented in this encounter Care Teams House Mover Helper Relationship Specialty Start Date End Date Danielle Smith NP PCP - General 01/27/17 08/04/22 documented as of this encounter
--- OUTSIDE RECORDS SUMMARY | 2025-05-28 23:40 | XMS_ITS | Encounter Summary ---
Author Organization [facility] Address [address] [place] [address] Phone Care Team Providers Care Naturopathic Doctor Name Role Phone Danielle Smith NP Primary Care Provider Maritza oliveira Encounter Details Date Type Department Care Team (Late st Contact Info) Description 08/10/2016 Documentation [facility] [place] [facility] [place] [address] Family Medicine, Physician [facility] [place] [address] Social History Tobacco Use Types Packs/Day Years [...] on filedocumented in this encounter Care Teams Naturopathic Doctor Relationship Specialty Start Date End Date Danielle Smith NP PCP - General 01/27/17 08/04/22 documented as of this encounter
--- OUTSIDE RECORDS SUMMARY | 2025-05-28 23:40 | XMS_ITS | Encounter Summary ---
Author Organization [facility] Address [address] [place] [address] Phone Care Team Providers Care Supervisor Publications Name Role Phone Danielle Smith FOUNDATION DIGGER Primary Care Provider Maritza oliveira Encounter Details Date Type Department Care Team (Late st Contact Info) Description 12/16/2013 Documentation [facility] [place] [address] [place] [address] Family Medicine, Physician [facility] [place] [address] Social History Tobacco Use Types Packs/Day Years [...] filedocumented in this encounter Care Teams Supervisor Publications Relationship Specialty Start Date End Date Danielle Smith NP PCP - General 01/27/17 08/04/22 documented as of this encounter
--- OUTSIDE RECORDS SUMMARY | 2025-05-28 23:40 | XMS_ITS | Encounter Summary ---
Author Organization [facility] Address [address] [place] [address] Phone Care Team Providers Care Principal Archaeologist Name Role Phone Danielle Smith INSTALLATION TECH Primary Care Provider Maritza oliveira Encounter Details Date Type Department Care Team (Late st Contact Info) Description 10/02/2013 Documentation [facility] [place] Family Medicine [address] [place] [address] Family Medicine, Physician [facility] [place] [address] Social History Tobacco Use Types Packs/Day Years [...] on filedocumented in this encounter Care Teams Principal Archaeologist Relationship Specialty Start Date End Date Danielle Smith NP PCP - General 01/27/17 08/04/22 documented as of this encounter
--- OUTSIDE RECORDS SUMMARY | 2025-05-28 23:40 | XMS_ITS | Encounter Summary ---
Author Organization [facility] Address [address] [place] [address] Phone Care Team Providers Care Knit Goods Washer Name Role Phone Danielle Smith NP Primary Care Provider Maritza oliveira Encounter Details Date Type Department Care Team (Late st Contact Info) Description 09/19/2016 Documentation [facility] [facility] [place] [address] Family Medicine, Physician [facility] [place] [address] Social History Tobacco Use Types Packs/Day Years [...] on filedocumented in this encounter Care Teams Knit Goods Washer Relationship Specialty Start Date End Date Danielle Smith NP PCP - General 01/27/17 08/04/22 documented as of this encounter
--- OUTSIDE RECORDS SUMMARY | 2025-05-28 23:40 | XMS_ITS | Encounter Summary ---
Author Organization [facility] Address [address] [place] [address] Phone Care Team Providers Care Resource Specialist Name Role Phone Danielle Smith NP Primary Care Provider Maritza oliveira Encounter Details Date Type Department Care Team (Late st Contact Info) Description 07/11/2016 Documentation [facility] [place] [facility] [place] [address] Family Medicine, Physician [facility] [place] [address] Social History Tobacco Use Types Packs/Day Years [...] on filedocumented in this encounter Care Teams Resource Specialist Relationship Specialty Start Date End Date Danielle Smith NP PCP - General 01/27/17 08/04/22 documented as of this encounter
--- OUTSIDE RECORDS SUMMARY | 2025-05-28 23:40 | XMS_ITS | Encounter Summary ---
Author Organization [facility] Address [address] [place] [address] Phone Care Team Providers Care Mophead Trimmer And Wrapper Name Role Phone Danielle Smith RETAIL BAKERY MANAGER Primary Care Provider Maritza oliveira Encounter Details Date Type Department Care Team (Late st Contact Info) Description 07/14/2014 [place]ation [facility] [place] [address] [place] [address] Family Medicine, Physician [facility] [place] [address] Social History Tobacco Use Types Packs/Day Years [...] on filedocumented in this encounter Care Teams Mophead Trimmer And Wrapper Relationship Specialty Start Date End Date Danielle Smith NP PCP - General 01/27/17 08/04/22 documented as of this encounter
--- OUTSIDE RECORDS SUMMARY | 2025-05-28 23:40 | XMS_ITS | Clinical Summary ---
Author Organization [facility] Address [address] [place] [address] Phone Care Team Providers Care Banquet Director Name Role Phone Unavailable Primary Care Provider [...] complete this topic Procedures * Due to [place] [employer] [place] law, this organization might not be sharing sensitive test results. Procedure Name Priority Date/Time Associated Diagnosis Comments CHLAMYDIA AND GONORRHEA, AMPLIFIED Routine 02/16/2016 2:09 PM EDT from Last 3 Months or Most Recently Relevant to Health Maintenance Results * Due to [place] [employer] [place] law, this organization might not be sharing sensitive test results. * Chlamydia and Gonorrhoea, Amplified (02/16/2016 2:09 PM EDT) URINE GC AMP PROBE NEGATIVE [facility] Comment: No Neisseria Gonorrhoeae RNA detected in this patient's sample (REFERENCE RANGE/NORMAL VALUE: NOT DETECTED) NOTE: This test uses vehicle upholsterer-mediated amplification method to detect rRNA from C.Trachomatis [...] risk of sexual abuse. Consult the [facility] if needed. Contact phone number . Therapeutic failure or success cannot be determined with the Aptima Combo2 assay since nucleic acid may persist following appropriate antimicrobial therapy. The Centers for Disease Control and Prevention (CDC) recommends confirmatory retesting using culture or a different nucleic acid amplification test when positive results occur, if indicated. Testing performed or reported by [facility], a Service of [facility], [address] [place] [address] CLIA [id number] Werner Gilbert MD, PhD, Morning Show Host URINE CHLAMYDIA AMP PROBE NEGATIVE [facility] Comment: No Chlamydia Trachomatis RNA detected in this patient's sample (REFERENCE RANGE/NORMAL VALUE: NOT DETECTED) 02/16/2016 2:09 PM EDT Narrative [facility] - 02/16/2016 2:09 PM EDT URINE CHLAMYDIA GC AMP PROBE us Danielle Smith NP LAB MICROBIOLOGY - GENERAL OR DERABLES Final Result [facility] [address] [place] [id number], from Last 3 Months or Most Recently Relevant to Health Maintenance Insurance ELIZ BRYANT [id number] [facility] NON PCC
--- OUTSIDE RECORDS SUMMARY | 2025-05-28 23:40 | XMS_ITS | Encounter Summary ---
Author Organization [facility] Address [address] [place] [address] Phone Care Team Providers Care Supervisor Patching Name Role Phone Danielle Smith PSYCHOPAEDIC NURSE Primary Care Provider Maritza oliveira Encounter Details Date Type Department Care Team (Late st Contact Info) Description 08/21/2013 Documentation [facility] [place] Family Medicine [address] [place] [address] Family Medicine, Physician [facility] [place] [address] Social History Tobacco Use Types Packs/Day Years [...] filedocumented in this encounter Care Teams Supervisor Patching Relationship Specialty Start Date End Date Danielle Smith NP PCP - General 01/27/17 08/04/22 documented as of this encounter
--- OUTSIDE RECORDS SUMMARY | 2025-05-28 23:40 | XMS_ITS | Encounter Summary ---
Author Organization [facility] Address [address] [place] [address] Phone Care Team Providers Care Global Recruiter Name Role Phone Danielle Smith FREIGHT RATE CLERK Primary Care Provider Maritza oliveira Encounter Details Date Type Department Care Team (Late st Contact Info) Description 07/07/2015 Documentation [place] Family Medicine [address] [place] [address] Family Medicine, Physician Count includes the [facility] [address] Social History Tobacco Use Types Packs/Day Years [...] on filedocumented in this encounter Care Teams Global Recruiter Relationship Specialty Start Date End Date Danielle Smith NP PCP - General 01/27/17 08/04/22 documented as of this encounter
--- OUTSIDE RECORDS SUMMARY | 2025-05-28 23:40 | XMS_ITS | Encounter Summary ---
Author Organization [facility] Address [address] [place] [address] Phone Care Team Providers Care Fibreglass Lay Up Worker Name Role Phone Danielle Smith DEPUTY FIRE MARSHAL Primary Care Provider Maritza oliveira Encounter Details Date Type Department Care Team (Late st Contact Info) Description 10/20/2015 Documentation [facility] [place] [address] [place] [address] Family Medicine, Physician [place] [address] Social History Tobacco Use Types Packs/Day Years [...] on filedocumented in this encounter Care Teams Fibreglass Lay Up Worker Relationship Specialty Start Date End Date Danielle Smith NP PCP - General 01/27/17 08/04/22 documented as of this encounter
--- OUTSIDE RECORDS SUMMARY | 2025-05-28 23:40 | XMS_ITS | Encounter Summary ---
Author Organization [facility] Address [address] [place] [address] Phone Care Team Providers Care Manager Of Employee Relations Name Role Phone Danielle Smith JEWELRY DEPARTMENT SUPERVISOR Primary Care Provider Maritza oliveira Encounter Details Date Type Department Care Team (Late st Contact Info) Description 12/25/2014 Documentation [facility] [place] [address] [place] [address] Family Medicine, Physician [facility] [place] [address] Social History Tobacco Use Types Packs/Day Years [...] in this encounter Care Teams Manager Of Employee Relations Relationship Specialty Start Date End Date Danielle Smith NP PCP - General 01/27/17 08/04/22 documented as of this encounter
--- OUTSIDE RECORDS SUMMARY | 2025-05-28 23:40 | XMS_ITS | Encounter Summary ---
Author Organization [facility] Address [address] [place] [address] Phone Care Team Providers Care Devulcanizer Head Name Role Phone Danielle Smith NP Primary Care Provider Maritza oliveira Encounter Details Date Type Department Care Team (Late st Contact Info) Description 07/11/2016 Documentation [facility] [place] [facility] [place] [address] Family Medicine, Physician [facility] [place] [address] Social History Tobacco Use Types Packs/Day Years [...] on filedocumented in this encounter Care Teams Devulcanizer Head Relationship Specialty Start Date End Date Danielle Smith NP PCP - General 01/27/17 08/04/22 documented as of this encounter
--- OUTSIDE RECORDS SUMMARY | 2025-05-28 23:40 | XMS_ITS | Encounter Summary ---
Author Organization [facility] Address [address] [place] [address] Phone Care Team Providers Care Associate Professor Of Media Arts Name Role Phone Danielle Smith NP Primary Care Provider Maritza oliveira Encounter Details Date Type Department Care Team (Late st Contact Info) Description 04/04/2016 Documentation [facility] [place] Family Medicine [address] [place] [address] Family Medicine, Physician [facility] [place] [address] Social History Tobacco Use Types Packs/Day Years [...] filedocumented in this encounter Care Teams Associate Professor Of Media Arts Relationship Specialty Start Date End Date Danielle Smith NP PCP - General 01/27/17 08/04/22 documented as of this encounter
--- OUTSIDE RECORDS SUMMARY | 2025-05-28 23:40 | XMS_ITS | Encounter Summary ---
Author Organization [facility] Address [address] [place] [address] Phone Care Team Providers Care Site Monitor Name Role Phone Danielle Smith NP Primary Care Provider Maritza oliveira Encounter Details Date Type Department Care Team (Late st Contact Info) Description 03/23/2016 Documentation [facility] [place] Family Medicine [address] [place] [address] Family Medicine, Physician [facility] [place] [address] Social History Tobacco Use Types Packs/Day Years [...] on filedocumented in this encounter Care Teams Site Monitor Relationship Specialty Start Date End Date Danielle Smith NP PCP - General 01/27/17 08/04/22 documented as of this encounter
== END 2025-05-28 19:10 | disposition home or self-care (01) ==
PROVIDERS: Physician Assistant Medical; Emergency Provider Emergency Medicine
DX: S80.11XA Contusion of right lower leg, initial encounter (principal); R60.0 Localized edema; V49.59XA Passenger injured in collision with other motor vehicles in traffic accident, initial encounter; Y93.89 Activity, other specified; Y92.488 Other paved roadways as the place of occurrence of the external cause; Y99.8 Other external cause status
CPT/HCPCS: 36415; 73590; 76882; 80048; 80076; 85025; 85652; 86140; 87070; 87205; 93971; 99282; 99284; J2003

== ENCOUNTER → 2025-05-28 12:48 | Outpatient (BNV) | payer OTHER, SELFPAY | PROVIDERS: Visit Provider Radiology Diagnostic Radiology | DX: Z03.89 Encounter for observation for other suspected diseases and conditions ruled out (principal); M79.604 Pain in right leg; R22.41 Localized swelling, mass and lump, right lower limb; M79.89 Other specified soft tissue disorders | CPT/HCPCS: 73590; 76882; 93971 ==

== ENCOUNTER 2025-06-09 10:23 | Outpatient (AMB) | payer OTHER, SELFPAY ==
[2025-06-09 10:35] VITALS: BP 110/54; PULSE 109; RESP 16; TEMP 37; O2SAT 97; BMI 40.1
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
--- OUTSIDE RECORDS SUMMARY | 2025-06-09 12:40 | XMS_ITS | Encounter Summary ---
Author Organization [facility] Address [address] [place] [address] Phone Care Team Providers Care Washer Blanket Name Role Phone Danielle Smith CORONER FORENSIC TECHNICIAN Primary Care Provider Maritza oliveira Encounter Details Date Type Department Care Team (Late st Contact Info) Description 07/07/2015 Documentation [facility] [place] [address] [place] [address] Family Medicine, Physician Count includes the [facility] [address] Social History Tobacco Use Types Packs/Day Years [...] on filedocumented in this encounter Care Teams Washer Blanket Relationship Specialty Start Date End Date Danielle Smith NP PCP - General 01/27/17 08/04/22 documented as of this encounter
--- OUTSIDE RECORDS SUMMARY | 2025-06-09 12:40 | XMS_ITS | Encounter Summary ---
Author Organization [facility] Address [address] [place] [address] Phone Care Team Providers Care Public Services Assistant Name Role Phone Danielle Smith NP Primary Care Provider Maritza oliveira Encounter Details Date Type Department Care Team (Late st Contact Info) Description 07/11/2016 Documentation [facility] [place] [facility] [place] [address] Family Medicine, Physician [facility] [place] [address] Social History Tobacco Use Types Packs/Day Years [...] on filedocumented in this encounter Care Teams Public Services Assistant Relationship Specialty Start Date End Date Danielle Smith NP PCP - General 01/27/17 08/04/22 documented as of this encounter
--- OUTSIDE RECORDS SUMMARY | 2025-06-09 12:40 | XMS_ITS | Encounter Summary ---
Author Organization [facility] Address [address] [place] [address] Phone Care Team Providers Care Laborer Heading Name Role Phone Danielle Smith NP Primary Care Provider Maritza oliveira Encounter Details Date Type Department Care Team (Late st Contact Info) Description 09/19/2016 Documentation [facility] [place] [facility] [place] [address] Family Medicine, Physician [facility] [place] [address] Social History Tobacco Use Types Packs/Day Years [...] filedocumented in this encounter Care Teams Laborer Heading Relationship Specialty Start Date End Date Danielle Smith NP PCP - General 01/27/17 08/04/22 documented as of this encounter
--- OUTSIDE RECORDS SUMMARY | 2025-06-09 12:40 | XMS_ITS | Encounter Summary ---
Author Organization [facility] Address [address] [place] [address] Phone Care Team Providers Care Managed Care Coordinator Name Role Phone Danielle Smith NP Primary Care Provider Maritza oliveiar Encounter Details Date Type Department Care Team (Late st Contact Info) Description 02/02/2017 Conversion Encounter [facility] - [address] [address] Social History Tobacco Use Types Packs/Day Years [...] on filedocumented in this encounter Care Teams Managed Care Coordinator Relationship Specialty Start Date End Date Danielle Smith NP PCP - General 01/27/17 08/04/22 documented as of this encounter
--- OUTSIDE RECORDS SUMMARY | 2025-06-09 12:40 | XMS_ITS | Encounter Summary ---
Author Organization [facility] Address [address] [place] [address] Phone Care Team Providers Care Sales And Retail Management Recruiter Name Role Phone Danielle Smith NP Primary Care Provider Maritza oliveira Encounter Details Date Type Department Care Team (Late st Contact Info) Description 07/11/2016 Documentation [facility] [place] Medicine [facility] [place] [address] Family Medicine, Physician [facility] [place] [address] Social History Tobacco Use Types Packs/Day Years [...] on filedocumented in this encounter Care Teams Sales And Retail Management Recruiter Relationship Specialty Start Date End Date Danielle Smith NP PCP - General 01/27/17 08/04/22 documented as of this encounter
--- OUTSIDE RECORDS SUMMARY | 2025-06-09 12:40 | XMS_ITS | Clinical Summary ---
Author Organization [facility] Address [address] [place] [address] Phone Care Team Providers Care Marketing Systems Manager Name Role Phone Unavailable Primary Care [...] complete this topic Procedures * Due to [place] [employer] law, this organization might not be sharing sensitive test results. Procedure Name Priority Date/Time Associated Diagnosis Comments CHLAMYDIA AND GONORRHEA, AMPLIFIED Routine 02/16/2016 2:09 PM EDT from Last 3 Months or Most Recently Relevant to Health Maintenance Results * Due to [place] [employer] law, this organization might not be sharing sensitive test results. * Chlamydia and Gonorrhoea, Amplified (02/16/2016 2:09 PM EDT) URINE GC AMP PROBE NEGATIVE [facility] Comment: No Neisseria Gonorrhoeae RNA detected in this patient's sample (REFERENCE RANGE/NORMAL VALUE: NOT DETECTED) NOTE: This test uses knurling machine operator-mediated amplification method to detect rRNA from C.Trachomatis [...] without risk of sexual abuse. Consult the [facility] if needed. Contact phone number . Therapeutic failure or success cannot be determined with the Aptima Combo2 assay since nucleic acid may persist following appropriate antimicrobial therapy. The Centers for Disease Control and Prevention (CDC) recommends confirmatory retesting using culture or a different nucleic acid amplification test when positive results occur, if indicated. Testing performed or reported by [facility], a Service of , [address] [place] [address] CLIA [id number] Werner Gilbert MD, PhD, Pasteurizing Machine Operator URINE CHLAMYDIA AMP PROBE NEGATIVE [facility] Comment: No Chlamydia Trachomatis RNA detected in this patient's sample (REFERENCE RANGE/NORMAL VALUE: NOT DETECTED) 02/16/2016 2:09 PM EDT Narrative [facility] - 02/16/2016 2:09 PM EDT URINE CHLAMYDIA GC AMP PROBE us Danielle Smith NP LAB MICROBIOLOGY - GENERAL OR DERABLES Final Result [facility] [address] [place] [address], from Last 3 Months or Most Recently Relevant to Health Maintenance Insurance [employer] [id number] [facility] NON PCC
--- OUTSIDE RECORDS SUMMARY | 2025-06-09 12:40 | XMS_ITS | Encounter Summary ---
Author Organization [facility] Address [address] [place] [address] Phone Care Team Providers Care Wet Process Head Miller Name Role Phone Danielle Smith NP Primary Care Provider Maritza oliveira Encounter Details Date Type Department Care Team (Late st Contact Info) Description 08/10/2016 Documentation [facility] [place] Family Medicine [facility] [address] Family Medicine, Physician [facility] [place] [address] Social History Tobacco Use Types Packs/Day Years [...] on filedocumented in this encounter Care Teams Wet Process Head Miller Relationship Specialty Start Date End Date Danielle Smith NP PCP - General 01/27/17 08/04/22 documented as of this encounter
--- OUTSIDE RECORDS SUMMARY | 2025-06-09 12:40 | XMS_ITS | Encounter Summary ---
Author Organization [facility] Address [address] [place] [address] Phone Care Team Providers Care Keno Writer/Runner Name Role Phone Danielle Smith DRESSED POULTRY GRADER Primary Care Provider Maritza oliveira Encounter Details Date Type Department Care Team (Late st Contact Info) Description 08/21/[address] [facility] [place] Family Medicine [address] [place] [address] Family Medicine, Physician [facility] [place] [address] Social History Tobacco Use Types Packs/Day Years [...] on filedocumented in this encounter Care Teams Keno Writer/Runner Relationship Specialty Start Date End Date Danielle Smith NP PCP - General 01/27/17 08/04/22 documented as of this encounter
--- OUTSIDE RECORDS SUMMARY | 2025-06-09 12:40 | XMS_ITS | Encounter Summary ---
Author Organization [facility] Address [address] [place] [address] Phone Care Team Providers Care Solutions Development Analyst Name Role Phone Danielle Smith ICE CREAM VAULT WORKER Primary Care Provider Maritza oliveira Encounter Details Date Type Department Care Team (Late st Contact Info) Description 10/02/2013 Documentation [facility] [place] [address] [place] [address] Family Medicine, Physician [facility] [place] [address] Social History Tobacco Use Types Packs/Day Years [...] on filedocumented in this encounter Care Teams Solutions Development Analyst Relationship Specialty Start Date End Date Danielle Smith NP PCP - General 01/27/17 08/04/22 documented as of this encounter
--- OUTSIDE RECORDS SUMMARY | 2025-06-09 12:40 | XMS_ITS | Encounter Summary ---
Author Organization [facility] Address [address] [place] [address] Phone Care Team Providers Care Organ Pipe Finisher Name Role Phone Danielle Smith NP Primary Care Provider Maritza oliveira Encounter Details Date Type Department Care Team (Late st Contact Info) Description 03/23/2016 Documentation [facility] [place] Family Medicine [address] [place] [address] Family Medicine, Physician [facility] [address] Social History Tobacco Use Types Packs/Day Years [...] on filedocumented in this encounter Care Teams Organ Pipe Finisher Relationship Specialty Start Date End Date Danielle Smith NP PCP - General 01/27/17 08/04/22 documented as of this encounter
--- OUTSIDE RECORDS SUMMARY | 2025-06-09 12:40 | XMS_ITS | Encounter Summary ---
Author Organization [facility] Address [address] [place] [address] Phone Care Team Providers Care Subway Train Driver Name Role Phone Danielle Smith NP Primary Care Provider Maritza oliveira Encounter Details Date Type Department Care Team (Late st Contact Info) Description 07/11/2016 [place]ation [facility] [place] [facility] [place] [address] Family Medicine, Physician [facility] [place] [address] Social History Tobacco Use Types Packs/Day Years [...] on filedocumented in this encounter Care Teams Subway Train Driver Relationship Specialty Start Date End Date Danielle Smith NP PCP - General 01/27/17 08/04/22 documented as of this encounter
--- OUTSIDE RECORDS SUMMARY | 2025-06-09 12:40 | XMS_ITS | Encounter Summary ---
Author Organization [facility] Address [address] [place] [address] Phone Care Team Providers Care Cat Wagon Operator Name Role Phone Danielle Smith SAS PROGRAMMER ANALYST Primary Care Provider Maritza oliveira Encounter Details Date Type Department Care Team (Late st Contact Info) Description 10/20/2015 Documentation [facility] Family Medicine [address] [place] [address] Family Medicine, Physician [place] [address] Social History Tobacco Use Types Packs/Day Years [...] on filedocumented in this encounter Care Teams Cat Wagon Operator Relationship Specialty Start Date End Date Danielle Smith NP PCP - General 01/27/17 08/04/22 documented as of this encounter
--- OUTSIDE RECORDS SUMMARY | 2025-06-09 12:40 | XMS_ITS | Encounter Summary ---
Author Organization [facility] Address [address] [place] [address] Phone Care Team Providers Care Shingle Sawyer Name Role Phone Danielle Smith EQUIPMENT PROCESSER STORAGE Primary Care Provider Maritza oliveira Encounter Details Date Type Department Care Team (Late st Contact Info) Description 07/14/2014 Documentation [facility] [place] Family Medicine [address] [place] [address] Family Medicine, Physician [facility] [place] [address] Social History Tobacco Use Types Packs/Day Years [...] on filedocumented in this encounter Care Teams Shingle Sawyer Relationship Specialty Start Date End Date Danielle Smith NP PCP - General 01/27/17 08/04/22 documented as of this encounter
--- OUTSIDE RECORDS SUMMARY | 2025-06-09 12:40 | XMS_ITS | Encounter Summary ---
Author Organization [facility] Address [address] [place] [address] Phone Care Team Providers Care Software Administrator Name Role Phone Danielle Smith MOLDER FEEDER Primary Care Provider Maritza oliveira Encounter Details Date Type Department Care Team (Late st Contact Info) Description 12/25/2014 Documentation [facility] [place] Family Medicine [address] [place] [address] Family Medicine, Physician [facility] [place] [address] Social History Tobacco Use Types Packs/Day Years [...] on filedocumented in this encounter Care Teams Software Administrator Relationship Specialty Start Date End Date Danielle Smith NP PCP - General 01/27/17 08/04/22 documented as of this encounter
--- OUTSIDE RECORDS SUMMARY | 2025-06-09 12:40 | XMS_ITS | Encounter Summary ---
Author Organization [facility] Address [address] [place] [address] Phone Care Team Providers Care Pulp Grinder And Blender Name Role Phone Danielle Smith PLANER SETTER Primary Care Provider Maritza oliveira Encounter Details Date Type Department Care Team (Late st Contact Info) Description 12/16/[address] [facility] [place] Family Medicine [address] [place] [address] Family Medicine, Physician [facility] [place] [address] Social History Tobacco Use Types Packs/Day Years [...] on filedocumented in this encounter Care Teams Pulp Grinder And Blender Relationship Specialty Start Date End Date Danielle Smith NP PCP - General 01/27/17 08/04/22 documented as of this encounter
--- OUTSIDE RECORDS SUMMARY | 2025-06-09 12:40 | XMS_ITS | Encounter Summary ---
Author Organization [facility] Address [address] [place] [address] Phone Care Team Providers Care C 13 Catapult Operator Name Role Phone Danielle Smith NP Primary Care Provider Maritza oliveira Encounter Details Date Type Department Care Team (Late st Contact Info) Description 04/04/2016 Documentation [facility] [place] Family Medicine [address] [place] [address] Family Medicine, Physician [facility] [place] [address] Social History Tobacco Use Types Packs/Day Years [...] on filedocumented in this encounter Care Teams C 13 Catapult Operator Relationship Specialty Start Date End Date Danielle Smith NP PCP - General 01/27/17 08/04/22 documented as of this encounter
--- OUTSIDE RECORDS SUMMARY | 2025-06-09 12:40 | XMS_ITS | Encounter Summary ---
Author Organization [facility] Address [address] [place] [address] Phone Care Team Providers Care Powder Blender And Pourer Name Role Phone Danielle Smith NP Primary Care Provider Maritza oliveira Encounter Details Date Type Department Care Team (Late st Contact Info) Description 09/26/2016 Documentation [facility] [place] Family Medicine [facility] [place] [address] Family Medicine, Physician [facility] [place] [address] Social History Tobacco Use Types Packs/Day Years [...] on filedocumented in this encounter Care Teams Powder Blender And Pourer Relationship Specialty Start Date End Date Danielle Smith NP PCP - General 01/27/17 08/04/22 documented as of this encounter
== END 2025-06-09 11:06 | disposition home or self-care (01) ==
LOC: HO.HMCH 10:24
PROVIDERS: PCP Internal Medicine; Visit Provider Internal Medicine
DX: L02.415 Cutaneous abscess of right lower limb (principal)

== ENCOUNTER 2025-06-11 10:30 | Outpatient (AMB) | payer OTHER, SELFPAY ==
[2025-06-11 10:33] VITALS: BP 133/79; PULSE 70; BMI 40.4
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
--- OUTSIDE RECORDS SUMMARY | 2025-06-11 10:37 | XMS_ITS | Encounter Summary ---
Author Organization [facility] Address [address] [place] [address] Phone Care Team Providers Care Chemical Engineering Professor Name Role Phone Danielle Smith NP Primary Care Provider Maritza oliveira Encounter Details Date Type Department Care Team (Late st Contact Info) Description 08/10/2016 Documentation [facility] [place] [place] [facility] [place] [address] Family Medicine, Physician [facility] [address] Social History Tobacco Use Types Packs/Day Years [...] on filedocumented in this encounter Care Teams Chemical Engineering Professor Relationship Specialty Start Date End Date Danielle Smith NP PCP - General 01/27/17 08/04/22 documented as of this encounter
--- OUTSIDE RECORDS SUMMARY | 2025-06-11 10:37 | XMS_ITS | Encounter Summary ---
Author Organization [facility] Address [address] [place] [address] Phone Care Team Providers Care Locomotive Electrician Name Role Phone Danielle Smith NP Primary Care Provider Maritza oliveira Encounter Details Date Type Department Care Team (Late st Contact Info) Description 09/19/2016 Documentation [facility] [place] Family Medicine [facility] [place] [address] Family Medicine, Physician [facility] [place] [address] Social History Tobacco Use Types Packs/Day Years [...] on filedocumented in this encounter Care Teams Locomotive Electrician Relationship Specialty Start Date End Date Danielle Smith NP PCP - General 01/27/17 08/04/22 documented as of this encounter
--- OUTSIDE RECORDS SUMMARY | 2025-06-11 10:37 | XMS_ITS | Encounter Summary ---
Author Organization [facility] Address [address] [place] [address] Phone Care Team Providers Care Event Marketing Specialist Name Role Phone Danielle Smith PIG LEAD MELTER HELPER Primary Care Provider Maritza oliveira Encounter Details Date Type Department Care Team (Late st Contact Info) Description 12/25/2014 Documentation [facility] [place] Family Medicine [address] [place] [address] Family Medicine, Physician [facility] [place] [address] Social History Tobacco Use Types Packs/Day Years [...] on filedocumented in this encounter Care Teams Event Marketing Specialist Relationship Specialty Start Date End Date Danielle Smith NP PCP - General 01/27/17 08/04/22 documented as of this encounter
--- OUTSIDE RECORDS SUMMARY | 2025-06-11 10:37 | XMS_ITS | Encounter Summary ---
Author Organization [facility] Address [address] [place] [address] Phone Care Team Providers Care Vehicle Washer Name Role Phone Danielle Smith NP Primary Care Provider Maritza oliveira Encounter Details Date Type Department Care Team (Late st Contact Info) Description 02/02/2017 Conversion Encounter [facility] - [address] [address] Social History Tobacco Use Types Packs/Day Years [...] filedocumented in this encounter Care Teams Vehicle Washer Relationship Specialty Start Date End Date Danielle Smith NP PCP - General 01/27/17 08/04/22 documented as of this encounter
--- OUTSIDE RECORDS SUMMARY | 2025-06-11 10:37 | XMS_ITS | Encounter Summary ---
Author Organization [facility] Address [address] [place] [address] Phone Care Team Providers Care Meat Passer Name Role Phone Danielle Smith AUTO CLUTCH SPECIALIST Primary Care Provider Maritza oliveira Encounter Details Date Type Department Care Team (Late st Contact Info) Description 07/14/2014 Documentation [facility] [place] Family Medicine [address] [place] [address] Family Medicine, Physician [facility] [place] [address] Social History Tobacco Use Types Packs/Day Years [...] on filedocumented in this encounter Care Teams Meat Passer Relationship Specialty Start Date End Date Danielle Smith NP PCP - General 01/27/17 08/04/22 documented as of this encounter
--- OUTSIDE RECORDS SUMMARY | 2025-06-11 10:37 | XMS_ITS | Encounter Summary ---
Author Organization [facility] Address [address] [place] [address] Phone Care Team Providers Care Project Admin Name Role Phone Danielle Smith NP Primary Care Provider Maritza oliveira Encounter Details Date Type Department Care Team (Late st Contact Info) Description 09/26/2016 Documentation [facility] [place] Family Medicine [facility] [place] [address] Family Medicine, Physician [facility] [place] [address] Social History Tobacco Use Types Packs/Day Years [...] on filedocumented in this encounter Care Teams Project Admin Relationship Specialty Start Date End Date Danielle Smith NP PCP - General 01/27/17 08/04/22 documented as of this encounter
--- OUTSIDE RECORDS SUMMARY | 2025-06-11 10:38 | XMS_ITS | Encounter Summary ---
Author Organization [facility] Address [address] [place] [address] Phone Care Team Providers Care Saddle And Side Wire Stitcher Name Role Phone Danielle Smith SUPERVISOR BLASTING Primary Care Provider Maritza oliveira Encounter Details Date Type Department Care Team (Late st Contact Info) Description 10/20/2015 Documentation [facility] [place] [address] [place] [address] Family Medicine, Physician [place] [address] Social History Tobacco Use Types Packs/Day Years [...] on filedocumented in this encounter Care Teams Saddle And Side Wire Stitcher Relationship Specialty Start Date End Date Danielle Smith NP PCP - General 01/27/17 08/04/22 documented as of this encounter
--- OUTSIDE RECORDS SUMMARY | 2025-06-11 10:38 | XMS_ITS | Encounter Summary ---
Author Organization [facility] Address [address] [place] [address] Phone Care Team Providers Care Branch Manager Trainee Name Role Phone Danielle Smith CRITICAL CARE NURSE Primary Care Provider Maritza oliveira Encounter Details Date Type Department Care Team (Late st Contact Info) Description 12/16/2013 Documentation [facility] [place] [facility] [place] [address] [place] [address] Family Medicine, Physician [facility] [place] [address] Social History Tobacco Use Types Packs/Day Years [...] on filedocumented in this encounter Care Teams Branch Manager Trainee Relationship Specialty Start Date End Date Danielle Smith NP PCP - General 01/27/17 08/04/22 documented as of this encounter
--- OUTSIDE RECORDS SUMMARY | 2025-06-11 10:38 | XMS_ITS | Encounter Summary ---
Author Organization [facility] Address [address] [place] [address] Phone Care Team Providers Care Overhead Worker Name Role Phone Danielle Smith NP Primary Care Provider Maritza oliveira Encounter Details Date Type Department Care Team (Late st Contact Info) Description 03/23/2016 Documentation [facility] Family Medicine [address] [place] [address] Family Medicine, Physician [facility] [place] [address] Social History Tobacco Use Types Packs/Day Years [...] on filedocumented in this encounter Care Teams Overhead Worker Relationship Specialty Start Date End Date Danielle Smith NP PCP - General 01/27/17 08/04/22 documented as of this encounter
--- OUTSIDE RECORDS SUMMARY | 2025-06-11 10:38 | XMS_ITS | Encounter Summary ---
Author Organization [facility] Address [address] [place] [address] Phone Care Team Providers Care Barnworker Groom Name Role Phone Danielle Smith NP Primary Care Provider Maritza oliveira Encounter Details Date Type Department Care Team (Late st Contact Info) Description 07/11/2016 Documentation [facility] Family Medicine [facility] [place] [address] Family Medicine, Physician [facility] [place] [address] Social History Tobacco Use Types Packs/Day Years [...] on filedocumented in this encounter Care Teams Barnworker Groom Relationship Specialty Start Date End Date Danielle Smith NP PCP - General 01/27/17 08/04/22 documented as of this encounter
--- OUTSIDE RECORDS SUMMARY | 2025-06-11 10:38 | XMS_ITS | Encounter Summary ---
Author Organization [facility] Address [address] [place] [address] Phone Care Team Providers Care Gun Mechanic Name Role Phone Danielle Smith SURVEY WORKER Primary Care Provider Maritza oliveira Encounter Details Date Type Department Care Team (Late st Contact Info) Description 10/02/2013 Documentation [facility] [place] Family Medicine [address] [place] [address] Family Medicine, Physician [facility] [place] [address] Social History Tobacco Use Types Packs/Day Years [...] on filedocumented in this encounter Care Teams Gun Mechanic Relationship Specialty Start Date End Date Danielle Smith NP PCP - General 01/27/17 08/04/22 documented as of this encounter
--- OUTSIDE RECORDS SUMMARY | 2025-06-11 10:38 | XMS_ITS | Encounter Summary ---
Author Organization [facility] Address [address] [place] [address] Phone Care Team Providers Care Distance Learning Program Coordinator Name Role Phone Danielle Smith NP Primary Care Provider Maritza oliveira Encounter Details Date Type Department Care Team (Late st Contact Info) Description 04/04/2016 Documentation [facility] [place] Family Medicine [address] [place] [address] Family Medicine, Physician [facility] [place] [address] Social History Tobacco Use Types Packs/Day Years [...] on filedocumented in this encounter Care Teams Distance Learning Program Coordinator Relationship Specialty Start Date End Date Danielle Smith NP PCP - General 01/27/17 08/04/22 documented as of this encounter
--- OUTSIDE RECORDS SUMMARY | 2025-06-11 10:38 | XMS_ITS | Encounter Summary ---
Author Organization [facility] Address [address] [place] [address] Phone Care Team Providers Care Swamper Name Role Phone Danielle Smith CHILDCARE CENTER DIRECTOR Primary Care Provider Maritza oliveira Encounter Details Date Type Department Care Team (Late st Contact Info) Description 07/07/2015 Documentation [facility] [place] [address] [place] [address] Family Medicine, Physician [place] [address] Social History Tobacco Use Types Packs/Day Years [...] on filedocumented in this encounter Care Teams Swamper Relationship Specialty Start Date End Date Danielle Smith NP PCP - General 01/27/17 08/04/22 documented as of this encounter
--- OUTSIDE RECORDS SUMMARY | 2025-06-11 10:38 | XMS_ITS | Clinical Summary ---
Author Organization [facility] Address [address] [place] [address] Phone Care Team Providers Care Wood Strip Block Floor Installer Name Role Phone Unavailable Primary Care Provider [...] complete this topic Procedures * Due to [place] [employer] law, this organization might not be sharing sensitive test results. Procedure Name Priority Date/Time Associated Diagnosis Comments CHLAMYDIA AND GONORRHEA, AMPLIFIED Routine 02/16/2016 2:09 PM EDT from Last 3 Months or Most Recently Relevant to Health Maintenance Results * Due to [place] [employer] law, this organization might not be sharing sensitive test results. * Chlamydia and Gonorrhoea, Amplified (02/16/2016 2:09 PM EDT) URINE GC AMP PROBE NEGATIVE [facility] Comment: No Neisseria Gonorrhoeae RNA detected in this patient's sample (REFERENCE RANGE/NORMAL VALUE: NOT DETECTED) NOTE: This test uses track superintendent-mediated amplification method to detect rRNA from C.Trachomatis [...] risk of sexual abuse. Consult the [facility] if needed. Contact phone number . Therapeutic failure or success cannot be determined with the Aptima Combo2 assay since nucleic acid may persist following appropriate antimicrobial therapy. The Centers for Disease Control and Prevention (CDC) recommends confirmatory retesting using culture or a different nucleic acid amplification test when positive results occur, if indicated. Testing performed or reported by [facility], a Service of [facility], [address] [place] [address] CLIA [id number] Werner Gilbert MD, PhD, Jira Administrator URINE CHLAMYDIA AMP PROBE NEGATIVE [facility] Comment: No Chlamydia Trachomatis RNA detected in this patient's sample (REFERENCE RANGE/NORMAL VALUE: NOT DETECTED) 02/16/2016 2:09 PM EDT Narrative [facility] - 02/16/2016 2:09 PM EDT URINE CHLAMYDIA GC AMP PROBE us Danielle Smith NP LAB MICROBIOLOGY - GENERAL OR DERABLES Final Result [facility] [address] [place] [phone], from Last 3 Months or Most Recently Relevant to Health Maintenance Insurance [place]IZ [place]YANT [id number] [facility] NON PCC
--- OUTSIDE RECORDS SUMMARY | 2025-06-11 10:38 | XMS_ITS | Encounter Summary ---
Author Organization [facility] Address [address] [place] [address] Phone Care Team Providers Care Metal Treater Name Role Phone Danielle Smith NP Primary Care Provider Maritza oliveira Encounter Details Date Type Department Care Team (Late st Contact Info) Description 07/11/2016 Documentation [facility] [place] [facility] [place] [address] Family Medicine, Physician [facility] [place] [address] Social History Tobacco Use Types Packs/Day Years [...] on filedocumented in this encounter Care Teams Metal Treater Relationship Specialty Start Date End Date Danielle Smith NP PCP - General 01/27/17 08/04/22 documented as of this encounter
--- OUTSIDE RECORDS SUMMARY | 2025-06-11 10:38 | XMS_ITS | Encounter Summary ---
Author Organization [facility] Address [address] [place] [id number] Phone Care Team Providers Care Messaging Architect Name Role Phone Danielle Smith NP Primary Care Provider Maritza oliveira Encounter Details Date Type Department Care Team (Late st Contact Info) Description 07/11/2016 Documentation [facility] [place] Medicine [place] [address] Family Medicine, Physician [place] [address] Social History Tobacco Use Types Packs/Day Years [...] on filedocumented in this encounter Care Teams Messaging Architect Relationship Specialty Start Date End Date Danielle Smith NP PCP - General 01/27/17 08/04/22 documented as of this encounter
--- OUTSIDE RECORDS SUMMARY | 2025-06-11 10:38 | XMS_ITS | Encounter Summary ---
Author Organization [facility] Address [address] [place] [id number] Phone Care Team Providers Care Content Developer Name Role Phone Danielle Smith COMPRESSOR STATIONS SUPERINTENDENT Primary Care Provider Maritza oliveira Encounter Details Date Type Department Care Team (Late st Contact Info) Description 08/21/2013 Documentation [facility] [place] Family Medicine [address] [place] [address] Family Medicine, Physician [facility] [place] [address] Social History Tobacco Use Types Packs/Day Years [...] on filedocumented in this encounter Care Teams Content Developer Relationship Specialty Start Date End Date Danielle Smith NP PCP - General 01/27/17 08/04/22 documented as of this encounter
== END 2025-06-11 10:57 | disposition home or self-care (01) ==
LOC: HO.HGS 10:31
PROVIDERS: PCP Internal Medicine; Referring Provider Internal Medicine; Visit Provider Surgery
DX: S80.10XA Contusion of unspecified lower leg, initial encounter (principal)
CPT/HCPCS: 99203